=== PATIENT | female | born 1970 | race Asian ===

== ENCOUNTER 2020-03-02 10:13 | Outpatient (REF) | payer BC, SELFPAY ==
--- NOTE | 2020-03-02 | MM_ITS ---
EXAMINATION: MM SCREENING DIGITAL BREAST TOMOSYNTHESIS, BILATERAL CLINICAL INFORMATION: Screening. Asymptomatic. The lifetime risk of breast cancer based on the Tyrer-Cuzick Model is 44%. COMPARISON: Mammography: April 17, 2019 and studies dating back to November 22, 2011 TECHNIQUE: Digital breast tomosynthesis is performed in both the craniocaudal and mediolateral oblique views along with computer-aided detection (CAD). Synthesized 2D images are generated from the tomosynthesis. Left breast exaggerated craniocaudal view also performed. FINDINGS: The breasts are extremely dense, which lowers the sensitivity of mammography (ACR BI-RADS breast composition Category d). There are no significant masses, abnormal calcifications, or other abnormalities. Stable calcifications are seen about the medial aspect of the left breast. MM/MM tomosynthesis screening BI IMPRESSION: There are no significant changes from prior study. ASSESSMENT: BI-RADS 2: Benign RECOMMENDATION: Routine annual mammography screening. This patient's information was entered into a reminder system with a target due date for their next mammogram.
== END 2020-03-02 10:14 | disposition home or self-care (01) ==
LOC: HO.MAMMO 10:13
PROVIDERS: PCP Internal Medicine; Visit Provider Internal Medicine
DX: Z12.31 Encounter for screening mammogram for malignant neoplasm of breast (principal)
CPT/HCPCS: 77063; 77067

== ENCOUNTER 2020-05-06 10:26 | Outpatient (REF) | payer BC, SELFPAY ==
[2020-05-06 11:08] LABS: MANUAL DIFF FLAG NO
[2020-05-06 11:18] LABS: Basophils Absolute Auto 0.1 X10*3/uL (0.0-0.2); Basophils Percent Auto 0.8 % (0-2); Eosinophils Absolute Auto 0.3 X10*3/uL (0.0-0.4); Eosinophils Percent Auto 3.3 % (0-4); Hematocrit 43.9 % (37-47); Hemoglobin 14.4 g/dl (12.0-16.0); Imm Gran Abs Auto 0.02 X10*3/uL (0.00-0.03); Imm Gran Pct Auto 0.2 % (0.0-0.4); Lymphocytes Absolute Auto 2.2 X10*3/uL (1.2-4.9); Lymphocytes Percent Auto 22.7 % (20-40); Mean Corpuscular HGB Conc 32.8 g/dl (31.0-35.0); Mean Corpuscular Volume 91.5 fL (80-98); Mean Platelet Volume 9.7 fL (9.4-12.3); Monocytes Absolute Auto 0.7 X10*3/uL (0.1-1.2); Monocytes Percent Auto 7.6 % (2-11); Neutrophils Absolute Auto 6.3 X10*3/uL (2.0-8.3); Neutrophils Percent Auto 65.4 % (45-73); Platelet Count 246 X10*3/uL (160-400); White Blood Count 9.6 X10*3/uL (4.8-10.8)
[2020-05-06 11:42] LABS: Glucose Urine UA NEG (NEG); Leukocyte Esterase Urine NEG (NEG); Nitrite Urine NEG (NEG); PH 5.5 (5.0-8.0); Specific Gravity - Urine 1.025 (1.005-1.025); Urine Blood TRACE (NEG); Urine Ketones NEG (NEG); Urine Protein NEG (NEG-TRACE)
[2020-05-06 11:44] LABS: Appearance Urine HAZY; Color Urine YELLOW
[2020-05-06 11:47] LABS: Alanine Aminotransferase 13 U/L (0-31); Albumin Level 4.2 g/dL (3.5-5.0); Alkaline Phosphatase 42 U/L (39-117); Anion Gap 14 (12-20); Aspartate Amino Transferase 17 U/L (5-31); Bilirubin Total 0.3 mg/dL (0.0-1.0); Blood Urea Nitrogen 15 mg/dL (9-16); Calcium 8.9 mg/dL (8.4-10.2); Carbon Dioxide 22 mmol/L (22-29); Chloride 107 mmol/L (96-108); Cholesterol 241 mg/dL; Estimated Glomerular Filt Rate > 60; Glucose Random 94 mg/dL (60-115); HDL Cholesterol 91 mg/dL; LDL Cholesterol Calculated 112 mg/dl; Potassium 4.5 mmol/l (3.3-5.1); Sodium 138 mmol/L (135-145); Total Protein 7.7 g/dL (6.5-8.0); Triglycerides 193 mg/dL
[2020-05-06 11:54] LABS: Free T4 (Free Thyroxine) 1.01 ng/dL (0.71-1.85); Thyroid Stimulating Hormone 0.94 uIU/mL (0.32-4.0); Vitamin D 25-OH Total 44.4 ng/mL (>30)
[2020-05-06 11:55] LABS: Mucus Urine TRACE /LPF; Squamous Epithelial Cell Urine 2+ /LPF; WBC Urine 0-2 /HPF (0-4)
[2020-05-06 12:44] LABS: Folate > 20.0 ng/mL (> or = 4.0); Vitamin B12 421 pg/mL (200-900)
== END 2020-05-06 10:27 | disposition home or self-care (01) ==
LOC: HO.LAB 10:26
PROVIDERS: PCP Internal Medicine; Visit Provider Internal Medicine
DX: R51.9 Headache, unspecified (principal); E78.00 Pure hypercholesterolemia, unspecified
CPT/HCPCS: 36415; 80053; 80061; 81001; 82306; 82607; 82746; 84439; 84443; 85025

== ENCOUNTER 2021-03-20 10:14 | Outpatient (REF) | payer BC, SELFPAY ==
--- NOTE | ~2021-03-20 | MM_ITS ---
EXAMINATION: MM SCREENING DIGITAL BREAST TOMOSYNTHESIS, BILATERAL CLINICAL INFORMATION: Screening. Asymptomatic. Family history premenopausal breast cancer, sister age 34; breast cancer aunt, age 50. The lifetime risk of breast cancer based on the Tyrer-Cuzick Model is 23%. COMPARISON: Mammography: 03/02/2020, 04/17/2019, 02/26/2019, 02/24/2018; MRI breasts 06/09/2017 TECHNIQUE: Digital breast tomosynthesis is performed in both the craniocaudal and mediolateral oblique views along with computer-aided detection (CAD). Synthesized 2D images are generated from the tomosynthesis. FINDINGS: The breasts are heterogeneously dense, which may obscure small masses (ACR BI-RADS breast composition Category c). Parenchymal pattern is similar to prior studies with stable scattered bilateral asymmetries. There is no developing density. No architectural abnormality or significant mass or abnormal calcifications. The axilla and skin contours are unremarkable. MM/MM tomosynthesis screening BI IMPRESSION: No mammographic evidence of malignancy. ASSESSMENT: BI-RADS 2: Benign RECOMMENDATION: 1. Routine annual mammography screening. 2. The lifetime risk of breast cancer based on the Tyrer-Cuzick Model is 23%. Additional annual adjunct screening with breast MRI may be of benefit in women with a risk score of 20% or greater. This patient's information was entered into a reminder system with a target due date for their next mammogram.
== END 2021-03-20 10:15 | disposition home or self-care (01) ==
LOC: HO.MAMMO 10:14
PROVIDERS: PCP Internal Medicine; Visit Provider Internal Medicine
DX: Z12.31 Encounter for screening mammogram for malignant neoplasm of breast (principal)
CPT/HCPCS: 77063; 77067

== ENCOUNTER 2022-03-26 10:06 | Outpatient (REF) | payer BC, SELFPAY ==
--- NOTE | ~2022-03-26 | MM_ITS ---
EXAMINATION: MM SCREENING DIGITAL BREAST TOMOSYNTHESIS, BILATERAL CLINICAL INFORMATION: Screening. Asymptomatic. Family history breast cancer, sister, aunt. The lifetime risk of breast cancer based on the Tyrer-Cuzick Model is 22%. COMPARISON: Mammography: 03/20/2021, 03/02/2020, 04/17/2019, 02/24/2018 TECHNIQUE: Digital breast tomosynthesis is performed in both the craniocaudal and mediolateral oblique views along with computer-aided detection (CAD). Synthesized 2D images are generated from the tomosynthesis. Technologist notes technically challenging exam due to recent right shoulder injury. Exam optimized to patient capabilities. FINDINGS: The breasts are heterogeneously dense, which may obscure small masses (ACR BI-RADS breast composition Category c). There are scattered shifting fibroglandular parenchymal densities related to variation in positioning. No developing density or significant changes. No abnormal calcifications. The axilla and skin contours are unremarkable. No significant changes. MM/MM tomosynthesis screening BI IMPRESSION: No significant changes from prior studies. ASSESSMENT: BI-RADS 2: Benign RECOMMENDATION: Routine annual mammography screening. This patient's information was entered into a reminder system with a target due date for their next mammogram.
== END 2022-03-26 10:07 | disposition home or self-care (01) ==
LOC: HO.MAMMO 10:06
PROVIDERS: Visit Provider Internal Medicine
DX: Z12.31 Encounter for screening mammogram for malignant neoplasm of breast (principal)
CPT/HCPCS: 77063; 77067

== ENCOUNTER 2022-09-30 06:20 | Day surgery (SDC) | payer BC, SELFPAY ==
[2022-09-30 06:32] VITALS: BMI 19.6
[2022-09-30 06:43] VITALS: BP 114/56; PULSE 78; RESP 16; TEMP 36.4; O2SAT 99
[2022-09-30] MEDS: Lactated Ringers 1,000 ML 50 ML IVCONT (06:53)
--- NOTE | 2022-09-30 07:25 | HO.ANESPROP2 ---
[facility] Active Problems Active Problems: All Active Problems (Updated 09/28/22 @ 13:19 by Candi Ward NP) Hypertriglyceridemia (Acute) Shoulder pain, right (Acute) Breast calcifications (Acute) Colon cancer screening (Acute) Occipital headache (Acute) Bunion (Acute) Annual physical exam (Acute) Past Medical History Medical History Breast calcifications Seasonal allergic rhinitis Family History Family History Father No problems noted. Mother CVD (cerebrovascular disease) Stroke Sister Breast cancer Paternal Aunt Breast cancer Paternal Grandfather Colon cancer Surgical History Surgical History History of arthroscopy of left shoulder History of Problems with Anesthesia: No Social History Social History Housing: House Alcohol intake: current Patient Tobacco Use Status: Former Tobacco user Years Smoked: college e-Cigarette/Vaping Use: Never Used Second Hand Smoke Exposure: No Use of substances other than those prescribed or required for medical reasons: No Are you DNR?: No Advance Directives: No Advance Directives Information Provided: Yes Recently lost weight without trying: No Nutrition Risks: No Nutritional Risk service: No Current occupational status: employed Cognitive needs: No Hearing needs: No Vision needs: No Meds Allergies Allergy/AdvReac Type Severity Reaction Status Date / Time Seasonal Allergies Allergy headaches Verified 03/24/22 10:32 itchy eyes, sneezing,rash Home Medications Medication Instructions Recorded Confirmed Last Taken Type fexofenadine 180 mg tablet 180 mg PO DAILY 05/05/20 03/24/22 Unknown History (Marilynn Allergy) multivitamin 1 tab PO DAILY 05/05/20 03/24/22 Unknown History drospirenone 3 mg-ethinyl 1 tab PO DAILY 10/26/20 03/24/22 Unknown History estradiol 0.03 mg tablet drospirenone 3 mg-ethinyl tab PO 09/28/22 09/28/22 Unknown History estradiol 0.03 mg tablet (Fariba) fexofenadine 60 mg capsule mg PO 09/28/22 Unknown History Exam Exam Date and Time: September 30, 2022724 Height,Weight and Vital Signs: Height 5 ft 1 in Weight 47.174 kg Last Vital Signs Temp 97.5 F 09/30/22 06:43 Pulse 78 09/30/22 06:43 Resp 16 09/30/22 06:43 BP 114/56 L 09/30/22 06:43 Pulse Ox 99 09/30/22 06:43 O2 Del Method Room Air 09/30/22 06:43 Airway Mallampati Class: I TM Dist: >3cm Neck ROM: Full Loose/Missing/Broken Teeth: No Heart: RRR Lungs: CYA Assessment and Plan Assessment Anesthesia Assessment: Anesthesia Plan Discussed and Chart Reviewed Final Anesthetic Review History of Problems with Anesthesia: No NPO: Yes ASA Class: II Final Preanesthetic Review: Meds/Allgs Chart Reviewed, Consent Obtained/Reviewed and Anes Risks/Benef Reviewed Patient Risk: Low Procedure Risk: Low Anesthetic Plan Anesthetic Plan: MAC: Disposition: Standard PACU
--- NOTE | 2022-09-30 07:26 | MHC.SHP ---
Pre-Procedural Eval Section A Date of Service: 09/30/22 Section B Chief Complaint: screening Details of Present Illness: see H&P no changes Relevant Family History (Specify if Yes): No Present Medications: None Medical History: No relevant PMH History of Previous Operations: No relevant previous surgery Allergies: Allergies Allergy/AdvReac Type Severity Reaction Status Date / Time Seasonal Allergies Allergy headaches Verified 03/24/22 10:32 itchy eyes, sneezing,rash Review of Systems Sugical H&P ROS: Negative: Constitution, Cardiovascular, Respiratory, Neurological, Psychiatric, Hem-Onc, Allergic/Immunologic, Gastrointestinal, Genitourinary, Musculoskeletal, Integumentary, Endocrine and Eyes/Ears/Nose/Throat Exam Surgical H&P Exam: Normal: HEENT, Normal: Heart, Normal: Lungs, Normal: Extremities, Normal: Abdomen, Normal: Skin and Normal: Neurological Plan Diagnosis/Plan: Unchanged I have reviewed the history and physical and performed a pertinent physical examination on my patient. No changes have occurred unless specified. Time Spent With Patient Time: Total time managing care of this patient today ____ minutes.
[2022-09-30 08:00] VITALS: BP 101/55; PULSE 75; RESP 18; TEMP 36.3; O2SAT 100
--- NOTE | 2022-09-30 08:09 | P.BOP_ITS ---
Brief Operative Note Date of Service: 09/30/22 Pre-op diagnosis: screening Post-op diagnosis: same Procedure: colonoscopy Surgeon: Bobby Schwartz Anesthesia: MAC Was an Moisture Meter Reader used for this Procedure?: No Estimated blood loss (mL): 0 Pathology: none sent Condition: stable Disposition: PACU
[2022-09-30 08:13] VITALS: BP 101/55; PULSE 69; RESP 18; O2SAT 100
[2022-09-30 08:25] VITALS: BP 105/53; PULSE 68; RESP 18; TEMP 36.4; O2SAT 100
--- NOTE | 2022-09-30 08:39 | OP_ITS ---
DATE OF SERVICE: 09/30/2022 SURGEON: Bobby Scwhartz MD INDICATIONS: Colorectal cancer screening. PREOPERATIVE DIAGNOSIS: POSTOPERATIVE DIAGNOSIS: PROCEDURE PERFORMED: Colonoscopy to the terminal ileum. ESTIMATED BLOOD LOSS: COMPLICATIONS: ANESTHESIA: Monitored anesthesia care. ASSISTANTS: SPECIMENS: DESCRIPTION OF PROCEDURE: A history and physical was performed. The risks and benefits of the procedure were explained to the patient. Informed consent was obtained. The patient was placed in the left lateral decubitus position. A digital rectal exam was performed and was found to be normal. The Olympus pediatric video colonoscope was introduced into the rectum and advanced to the cecum without difficulty. The cecum was identified by transillumination, palpation, and identification of the ileocecal valve. Examination was performed. The scope was removed. She tolerated the procedure well and was taken to recovery in stable condition. FINDINGS: The terminal ileum was normal. Visualized colonic mucosa was normal. The quality of prep was excellent. No polyps were identified. Retroflexed examination showed some small internal hemorrhoids. IMPRESSION: Normal colonoscopy. RECOMMENDATIONS: 1. Follow up as needed. 2. Repeat colonoscopy could be considered in 10 years as she is at average risk. MD GEOVANNY Perez/JEOVANYL / [id number]
== END 2022-09-30 09:18 | disposition home or self-care (01) ==
PROVIDERS: PCP Internal Medicine; Visit Provider Internal Medicine Gastroenterology
PROC: 0DJD8ZZ Inspection of Lower Intestinal Tract, Via Natural or Artificial Opening Endoscopic (ICD-10-PCS; CPT 45378; principal; 2022-09-30 07:30)
DX: Z12.11 Encounter for screening for malignant neoplasm of colon (principal); K64.8 Other hemorrhoids; J30.2 Other seasonal allergic rhinitis; Z79.899 Other long term (current) drug therapy
CPT/HCPCS: 45378

== ENCOUNTER 2023-04-08 09:52 | Outpatient (REF) | payer BC, SELFPAY ==
--- NOTE | ~2023-04-08 | MM_ITS ---
EXAMINATION: MM SCREENING DIGITAL BREAST TOMOSYNTHESIS, BILATERAL CLINICAL INFORMATION: Screening. Asymptomatic. The patient has a history of prior benign excisional right breast biopsy. Patient has a significant family history for sister having had breast cancer at age 34 and an aunt diagnosed at age 50. Prior Tyrer-Absaraka risk assessment has placed the patient's lifetime risk of breast cancer above 20%. The patient's last breast MRI at this institution was in 2018. Please note that a patient of this level of risk should have annual screening breast MRI as an adjunct to annual mammography. The genetic mutation status of this patient as it relates to risk of breast cancer is not known at the time of this mammogram. If the patient has not had a formal genetic risk assessment evaluation in the last 5 years, this is recommended. The 5 year bethel is given since there have been significant improvements in the quality and extent of genetic testing as it relates to the risk of breast cancer. COMPARISON: Mammography: This study is compared with prior exams dating back to 2017. TECHNIQUE: Digital breast tomosynthesis is performed in both the craniocaudal and mediolateral oblique views along with computer-aided detection (CAD). Synthesized 2D images are generated from the tomosynthesis. FINDINGS: There are scattered areas of fibroglandular density (ACR BI-RADS breast composition Category b). RIGHT BREAST: A scar marker was placed in the superior aspect of the right breast indicating in the area of prior benign excision. In the 6:00 region of the right breast, there is a focal asymmetry which warrants additional mammographic and targeted sonographic imaging. There are faint calcifications in the central portion of the right breast which warrant additional imaging with magnification mammography. This should involve whole breast magnification. LEFT BREAST: There is an asymmetry of the anterior fat glandular interface of the left breast, just below the posterior nipple line in the MLO projection. Additional mammographic and targeted sonographic evaluation of this region is advised. There are faint calcifications in the upper inner quadrant of the left breast for which additional mammographic imaging with magnification is advised. MM/MM tomosynthesis screening BI IMPRESSION: Bilateral additional breast imaging is indicated: Additional mammographic and targeted sonographic imaging of a right breast focal asymmetry and a left breast asymmetry are advised. Additional mammographic imaging with magnification is advised for bilateral breast calcifications as described above. Please refer to the clinical information section above regarding additional clinical and MRI imaging evaluation given the patient's risk of breast cancer. ASSESSMENT: BI-RADS BI-RADS 0 - Incomplete: Needs additional Imaging. RECOMMENDATION: Additional views of both breasts recommended. Radiology department staff will contact the patient for additional imaging. Additional Imaging required This examination should not preclude the clinical evaluation of a suspicious palpable abnormality. This patient's information was entered into a reminder system with a target due date for their next mammogram.
== END 2023-04-08 09:53 | disposition home or self-care (01) ==
LOC: HO.MAMMO 09:52
PROVIDERS: Visit Provider Internal Medicine
DX: Z12.31 Encounter for screening mammogram for malignant neoplasm of breast (principal)
CPT/HCPCS: 77063; 77067

== ENCOUNTER → 2023-04-08 10:00 | Outpatient (BNV) | payer BC, SELFPAY | PROVIDERS: Visit Provider Radiology Diagnostic Radiology | DX: Z12.31 Encounter for screening mammogram for malignant neoplasm of breast (principal) | CPT/HCPCS: 77063; 77067 ==

== ENCOUNTER → 2023-04-18 08:00 | Outpatient (BNV) | payer BC, SELFPAY | PROVIDERS: PCP Internal Medicine; Visit Provider Radiology Diagnostic Radiology | DX: R92.1 Mammographic calcification found on diagnostic imaging of breast (principal) | CPT/HCPCS: 76641; 77062; 77066 ==

== ENCOUNTER 2023-04-18 08:03 | Outpatient (REF) | payer BC, SELFPAY ==
--- NOTE | ~2023-04-18 | US_ITS ---
EXAMINATION: MM DIAGNOSTIC DIGITAL BREAST TOMOSYNTHESIS, BILATERAL AND BILATERAL WHOLE BREAST ULTRASOUND CLINICAL INFORMATION: The patient presents for bilateral additional mammographic and sonographic imaging for right breast inferiorly located focal asymmetry, centrally located right breast calcifications, left breast asymmetry and left breast upper inner quadrant calcifications. All these findings were noted on recent screening mammography dated 04/08/2023. Please note that the patient is high risk for the development of breast cancer over her lifetime given her family history. COMPARISON: Mammography: This study is compared with prior mammograms dating back to 2017. MAMMOGRAPHIC AND SONOGRAPHIC TECHNIQUE: Digital breast tomosynthesis is performed in both the craniocaudal and mediolateral oblique views along with computer-aided detection (CAD). Synthesized 2D images are generated from the tomosynthesis. Bilateral CC and lateral magnification imaging of each breast and spot compression of the left breast in the MLO projection and spot compression of the right breast in the CC and MLO projections was performed. Bilateral 90 degree views of each breast were also performed. Bilateral whole breast ultrasound was performed. FINDINGS: There are scattered areas of fibroglandular density (ACR BI-RADS breast composition Category b). RIGHT BREAST: -Additional mammographic imaging of the inferiorly located right breast focal asymmetry reveals an area of irregular mass formation with architectural distortion which is mammographically suspicious and has a sonographic correlate. Please note that the patient's surgical scar is located in the superior aspect of the breast, remote from this suspicious finding. Sonography of the right breast in the 6:00 position, 1 cm from the nipple shows a 7 mm x 6 mm x 4 mm irregularly marginated hypoechoic mass with an echogenic halo. There is no internal vascularity of the mass however there is a prominent artery which lies adjacent to the mass. The deep portion of the mass approaches the chest wall muscle. This may be artifactual due to the supine position of the patient while being scanned. Nonetheless, the finding does come close to the chest wall on sonography. Invasion or extension to the level of the chest wall muscle cannot be ruled out from sonography. This would require breast MRI. There is no right axillary adenopathy. -Additional mammographic imaging of the calcifications in the superior aspect of the right breast, just lateral to the posterior nipple line revealed them to be grouped and indeterminate. Stereotactic biopsy of these calcifications is advised if it will change the patient preferences and surgical recommendations for definitive surgical, pending the results of the biopsy of the sonographic mass at 6:00 which is referenced in the paragraph directly above. LEFT BREAST: -Additional mammographic imaging of the left breast shows no persistent underlying abnormality. Sonography of the entire left breast shows no focal abnormality. There is no left axillary adenopathy. -Additional mammographic imaging of calcifications in the upper inner quadrant of the left breast was performed. In this location, there are grouped, indeterminate calcifications which warrant stereotactic biopsy. Stereotactic biopsy of these calcifications is advised if it will change the patient's preferences for definitive surgical management given her family history and right breast findings on today's study. US/US breast BI limited mamm only IMPRESSION: 7 mm mammographically and sonographically suspicious mass of the 6:00 region of the right breast for which ultrasound-guided biopsy is advised. Please note that extension of this abnormality to the chest wall should be determined with breast MRI. No adenopathy in either axilla. Bilateral indeterminate calcifications involving the upper outer quadrant of the right breast and upper inner quadrant of the left breast. Stereotactic biopsy of these calcifications is advised. Surgical consultation is recommended. Please note that taking into consideration the patient's prior family history and current suspicious right breast sonographic mass, stereotactic biopsy of these calcifications may be deferred in the short-term until the pathology results from the right breast mass are known. At that point, bilateral breast MRI is recommended. Pending the right breast biopsy and breast MRI results, the stereotactic biopsies may be performed at the discretion of the consulting surgeon and with consideration to the patient's preferences for definitive surgical treatment. If the patient and /or breast surgeon wishes to the stereotactic biopsies performed prior to breast MRI, we would be happy to accommodate the patient. ASSESSMENT: BI-RADS BI-RADS 5 - Highly suggestive of malignancy RECOMMENDATION: Biopsy recommended Surgical consultation is also recommended. Results were provided to the patient at time of visit by the technologist. This patient's information was entered into a reminder system with a target due date for their next mammogram.
== END 2023-04-18 08:04 | disposition home or self-care (01) ==
LOC: HO.MAMMO 08:03
PROVIDERS: PCP Internal Medicine; Visit Provider Internal Medicine
DX: R92.1 Mammographic calcification found on diagnostic imaging of breast (principal)
CPT/HCPCS: 76642; 77062; 77066

== ENCOUNTER 2023-04-21 10:52 | Outpatient (AMB) | payer BC, SELFPAY ==
--- NOTE | 2023-04-21 11:00 | MHC.PC.OV ---
Vital Signs 04/21/23 11:03 Height 5 ft 1 in Weight 102 lb BMI 19.3 BP 124/86 Blood Pressure Location Lt brachial Position Sitting Respiration 17 Pulse 70 Pulse Source Palpation Intake Visit Reasons: Annual Exam Intake Note: Patient is here today for a physical. Group Practice Pediatrician Required: No Accompanied by: Self / Same As Patient Allergies Seasonal Allergies Allergy (Verified 04/21/23 11:04) headaches itchy eyes, sneezing,rash Medication List - Last Reconciled 04/21/23 by Tammy Walton MD drospirenone-ethinyl estradiol 3-0.03 mg (Fariba) tabs PO fexofenadine (Marilynn Allergy) 180 mg PO DAILY multivitamin 1 tab PO DAILY Tobacco use date assessed: 04/21/23 Dental Screening Dental Screen Date: 04/21/23 Did you have a dental visit in the last 12 months?: Yes Did you have a dental problem in the last 6 months where you did not have access to dental care?: No Was dental information given to patient?: Patient has dentist HPI Annual Exam HPI Details 52-year-old female with a history of hypertriglyceridemia coming in for physical exam. Patient had colonoscopy April 2023 10 years Concerns about breast calcifications also. Patient was last seen in 2021.. Biopsy Dr. Bourne scheduled 05/17/2023. hoarse since 3 days , no fevers, cough, , sob, post nasal drip. [facility] Medical History (Updated 04/21/23 @ 11:55 by Tammy Walton MD) Colon cancer screening Seasonal allergic rhinitis Breast calcifications Surgical History History of arthroscopy of left shoulder Family History Father No problems noted. Mother CVD (cerebrovascular disease) Stroke Sister Breast cancer Paternal Aunt Breast cancer Paternal Grandfather Colon cancer Social History (Updated 04/21/23 @ 11:45 by Tammy Walton MD) Housing: House Alcohol intake: current Comment: once q 3 month 1-2 glasses Patient Tobacco Use Status: Former Tobacco user Tobacco use type: Cigarette Years Smoked: college e-Cigarette/Vaping Use: Never Used Second Hand Smoke Exposure: No service: No Current occupational status: employed Cognitive needs: No Hearing needs: No Vision needs: No Questionnaire PHQ-9 Over the last 2 weeks, how often have you been bothered by any of the following problems? 1. Little interest or pleasure in doing things: not at all 2. Feeling down, depressed, or hopeless: not at all 3. Trouble falling or staying asleep, or sleeping too much: not at all 4. Feeling tired or having little energy: not at all 5. Poor appetite or overeating: not at all 6. Feeling bad about yourself - or that you are a failure or have let yourself or your family down: not at all 7. Trouble concentrating on things, such as reading the newspaper or watching television: not at all 8. Moving or speaking so slowly that other people could have noticed. Or the opposite - being so fidgety or restless that you have been moving around a lot more than usual: not at all 9. Thoughts that you would be better off or of hurting yourself in some way: not at all Total score: 0 Depression Screening Interpretation: Negative Depression Screening Done: Yes Source: Developed by Drs. Ross Gilliam, Kaitlynn Thompson, Rey Finley and colleagues, with an educational jazz from [employer]. Thrive Questionnaire Date Thrive assessed: 04/21/23 I am a: Patient What is your living situation today?: I have a steady place to live Within the past 12 months, did the food you bought not last and you didn't have the money to get more?: Never true Within the past 12 months, did you worry whether your food would run out before you got money to buy more?: Never true Do you have trouble paying for medicines?: No Do you have trouble getting transportation to medical appointments?: No Do you have trouble paying your heating and electricity bill?: No Do you have trouble taking care of your child, family member or friend?: No Do you have trouble with day-to-day activities such as bathing, preparing meals, shopping, managing finances, etc.?: No Are you currently unemployed and looking for a job?: No Are you interested in more education?: No Please select the resources that you would like help with: None Currently or been in a relationship where the following occur: no concerns reported AUDIT C Alcohol Use Questionnaire (AUDIT-C) 1. How often do you have a drink containing alcohol?: Monthly or less 2. How many drinks containing alcohol do you have on a typical day when you are drinking?: 1 or 2 3. How often do you have six or more drinks on one occasion?: Never Total Score: 1 CARYN-7 AMB Questionnaire CARYN-7 Date CARYN - 7 assessed: 04/21/23 Feeling nervous, anxious, or on edge: 0 = Not at all Not being able to stop or control worryin = Not at all Worrying too much about different things: 0 = Not at all Trouble relaxin = Not at all Being so restless that it is hard to sit still: 0 = Not at all Becoming easily annoyed or irritable: 0 = Not at all Feeling afraid as if something awful might happen: 0 = Not at all Total CARYN-7 score (0-4 normal; 5-9 mild; 10-14 moderate; 15-21 severe): 0 Source: Developed by Drs. Ross Gilliam, Kaitlynn Thompson, Rey Finley and colleagues, with an educational jazz from [employer]. CARYN-7 Assessment Billing CARYN-7 Assessment Tool: CARYN-7 Assessment 80493 Review of Systems Const Denies poor appetite and Denies weakness Eyes Denies no additional complaints ENT Reports Normal hearing present, Denies dizziness, Denies nasal congestion, Denies tinnitus and Denies sore throat Card Denies chest pain, Denies syncope, Denies rapid heart rate and Denies dyspnea Resp Denies cough and Denies dyspnea GI Denies change in stool character, Reports constipation, Denies diarrhea, Denies nausea and Denies vomiting Denies urinary frequency, Denies difficulty voiding and Denies dysuria Neuro Reports Normal hearing present, Denies confusion, Denies dizziness, Denies syncope and Denies weakness Psych Denies confusion Physical exam (Primary Care) Vital Signs: Last Vital Signs Pulse 70 04/21/23 11:03 Resp 17 04/21/23 11:03 BP 124/86 04/21/23 11:03 BMI result Body Mass Index 19.3 Tobacco/Smoking Status: Tobacco use Status Tobacco use date assessed 04/21/23 04/21/23 11:08 Patient Tobacco Use Status Former Tobacco user 04/21/23 11:00 Tobacco use type Cigarette 04/21/23 11:08 e-Cigarette/Vaping Use Never Used 12/15/23 11:00 PHQ-9: PHQ-9 Score PHQ-9: Total score 0 04/21/23 11:08 Depression Screening Interpretation: Negative Thrive Assessment: Date of Thrive Assessment Date Thrive assessed 04/21/23 04/21/23 11:08 Currently or been in a relationship where the following occur: no concerns reported Const General: No confusion Orientation/consciousness: No confusion HENMT Head: Yes normocephalic Ears: external ears normal and TM's normal bilaterally Face and sinus: Yes normal facial exam Mouth: moist mucous membranes Throat: Yes tonsils normal Eyes Conjunctivae: conjunctivae normal Pupils: Equal, round and reactive pupils present and Pupil accommodation reflex normal Direct Ophthalmoscopy: normal light reflex Neck Neck: No lymphadenopathy Thyroid: Thyroid normal Chest Chest palpation & inspection: normal inspection of the chest Resp Effort & Inspection: normal respiratory effort and no audible wheezes Auscultation: clear to auscultation bilaterally, no crackles, no wheezes and lung sounds not diminished Cardio Rate: regular rate Rhythm: regular rhythm Peripheral pulses: radial pulses present and dorsalis pedis present GI Palpation (GI): no masses Auscultation: normal bowel sounds and normoactive bowel sounds Rectal Exam - Female: deferred Skin General skin exam: no rashes or lesions noted Rashes: no rashes Neuro General: No confusion Cranial nerves: Yes Equal, round and reactive pupils present and Yes Normal hearing present Cognition (Neuro): normal cognition Gait exam (Neuro): Normal gait present Motor exam (neuro): 5/5 motor strength present throughout Deep tendon reflexes (DTR's): Right brachioradialis reflex intensity grade: 2+, Left brachioradialis reflex intensity grade: 2+, Right patellar reflex intensity grade: 2+ and Left patellar reflex intensity grade: 2+ Extrem General: No edema Assessment and Plan Assessment & Plan (1) Annual physical exam: Code(s): Z00.00 - Encounter for general adult medical examination without abnormal findings (2) Occipital headache: Code(s): R51.9 - Headache, unspecified (3) Breast calcifications: Comment: 2008 right breast calcification atypical duct hyperplasia, left breast calcifications February 2016 MRI May 2016. 2019= mammogram only. for 2020 mammo and MRI with contrast Code(s): R92.1 - Mammographic calcification found on diagnostic imaging of breast Plan: Recent ultrasound recommending biopsy scheduled for May 2023 (4) Hypertriglyceridemia: Code(s): E78.1 - Pure hyperglyceridemia Plan: Avoid fried foods, chicken skin, eggs, butter margarine, pastries and meat. Be it pork or beef they have a lot of cholesterol (5) Neck mass: Comment: posterior 12/2011 Dr. Ham 2011 Code(s): R22.1 - Localized swelling, mass and lump, neck Plan: will be seeing the surgeon advised to ask about this (6) Keratosis: Comment: R lind area (04/2023) Code(s): L57.0 - Actinic keratosis Plan: will call if change Orders: Orders Complete Blood Count Auto Diff Today E78.1 - Pure hyperglyceridemia Comprehensive Met. Panel Today E78.1 - Pure hyperglyceridemia Free T4 (Free Thyroxine) Today E78.1 - Pure hyperglyceridemia Vitamin B12 and Folate Today E78.1 - Pure hyperglyceridemia Lipid Panel Today E78.00 - Pure hypercholesterolemia, unspecified, E78.1 - Pure hyperglyceridemia Thyroid Stimulating Hormone Today E78.1 - Pure hyperglyceridemia Coding Level of Care Code Est Pt Prev Care 40-64y(47160) Diagnoses Annual physical exam Z00.00 Occipital headache R51.9 Breast calcifications R92.1 Hypertriglyceridemia E78.1 Neck mass R22.1 Keratosis L57.0 Additional Codes CARYN-7 Assessment Billing - CARYN-7 Assessment Tool: CARYN-7 Assessment 43328 ([id number])
[2023-04-21 11:03] VITALS: BP 124/86; PULSE 70; RESP 17; BMI 19.3
== END 2023-04-21 12:00 | disposition home or self-care (01) ==
PROVIDERS: Visit Provider Internal Medicine
DX: Z00.00 Encounter for general adult medical examination without abnormal findings (principal); R51.9 Headache, unspecified; E78.1 Pure hyperglyceridemia; R22.1 Localized swelling, mass and lump, neck; L57.0 Actinic keratosis
CPT/HCPCS: 99396

== ENCOUNTER 2023-05-17 08:22 | Outpatient (AMB) | payer BC, SELFPAY ==
--- NOTE | 2023-05-17 08:25 | A.OFFVIS_ITS ---
Intake Vital Signs 05/17/23 08:32 Height 5 ft 1 in Weight 105 lb BMI 19.8 BP 118/65 Blood Pressure Location Rt brachial Position Sitting Pulse 92 Intake Visit Reasons: U/S bx of Rt breast 6 o'clock density Intake Note: This patient presents for Ultrasound guided biopsy for right breast 6 o'clock density assessment. Patient c/o; reports no breast complaints at this time. Paster Supervisor Required: No Equipment Superintendent: Equipment Superintendent Present (Gen) Accompanied by: Self / Same As Patient Allergies Seasonal Allergies Allergy (Verified 05/17/23 08:29) headaches itchy eyes, sneezing,rash HPI U/S bx of Rt breast 6 o'clock density HPI Details 52-year-old female here because of mammo gram findings. She had undergone screening mammography showing calcifications on both breasts. She had been brought back in for diagnostic mammogram and ultrasound. There was note of irregularly marginated hypoechoic mass in the right breast at the 6 o'clock position. This also appears to be close to the chest wall. On the upper inner quadrant of the left breast was note of indeterminate calcifications as well. Stereotactic biopsy of these 2 areas were recommended by the radiologist She had previous mammogram studies showing fibroglandular densities on her breasts. She denies any palpable breast masses or nipple or skin changes. Her menarche was at age of 15. She was never . She still has her periods. Her sister was diagnosed to have breast cancer at age of 35. The patient herself had BRCA testing which was negative. She did have an open biopsy for calcifications on the right breast with Dr. Amador in 2008 in this showed sclerosing adenosis and ductal hyperplasia. She has had multiple and regular g along with MRI since then. The patient also points to a mass on the posterior neck. She had excision done before by Dr. 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 However, she says that this has recurred. [facility] Medical History Calcification of both breasts on mammography Colon cancer screening Seasonal allergic rhinitis Breast calcifications Surgical History History of arthroscopy of left shoulder Family History Father No problems noted. Mother CVD (cerebrovascular disease) Stroke Sister Breast cancer Paternal Aunt Breast cancer Paternal Grandfather Colon cancer Social History Housing: House Alcohol intake: current Comment: once q 3 month 1-2 glasses Patient Tobacco Use Status: Former Tobacco user Tobacco use type: Cigarette Years Smoked: college e-Cigarette/Vaping Use: Never Used Second Hand Smoke Exposure: No service: No Current occupational status: employed Cognitive needs: No Hearing needs: No Vision needs: No Female Reproductive History Menstrual Age of Menarche: 15 Total pregnancies: 0 Review of Systems Const Denies chills and Denies fever(s) Card Denies chest pain, Denies dyspnea and Denies dyspnea on exertion Resp Denies cough, Denies dyspnea and Denies dyspnea on exertion GI Denies hematochezia and Denies change in bowel habits Denies hematuria Musc Denies back pain and Denies limited range of motion Neuro Denies focal weakness and Denies convulsions Psych Denies depression and Denies mood swings Physical Exam Vital Signs: Last Vital Signs Pulse 92 05/17/23 08:32 BP 118/65 05/17/23 08:32 BMI result Body Mass Index 19.8 Const General: comfortable and no acute distress Orientation/consciousness: patient oriented x3 Neck Other: Mass, well-defined on the posterior neck, about 3 cm in size, firm, mobile and appears subcutaneous Neck: Yes no lymphadenopathy Chest Other: No palpable breast masses, no nipple or skin changes, surgical scar on the upper aspect of the right breast seen Resp Auscultation: clear to auscultation bilaterally Cardio Rhythm: regular rhythm GI Palpation (GI): Soft to palpation, nontender and no guarding Neuro General: patient oriented x3 Assessment & Plan Assessment & Plan (1) Calcification of both breasts on mammography: Code(s): R92.1 - Mammographic calcification found on diagnostic imaging of breast Plan: She has mammographic abnormalities seen as described above on both breasts. A stereotactic biopsy had been recommended by the radiologist for both the right breast in the left breast. She understands the technique of this procedure. I will see her in the office to discuss the path report next week. We will also discuss plans for her lipoma on the posterior neck. Orders: Orders US breast ndl core biopsy RT 05/16/23 N63.10 - Unspecified lump in the right nichol ast, unspecified quadrant US breast ndl core biopsy LT 05/16/23 R92.1 - Mammographic calcification found on diagnostic imaging of breast Coding Level of Care Code New Pt Level 3 (99119) Diagnoses Calcification of both breasts on mammography R92.1
[2023-05-17 08:32] VITALS: BP 118/65; PULSE 92; BMI 19.8
== END 2023-05-17 08:58 | disposition home or self-care (01) ==
PROVIDERS: PCP Internal Medicine; Visit Provider Surgery
DX: R92.1 Mammographic calcification found on diagnostic imaging of breast (principal)
CPT/HCPCS: 99203

== ENCOUNTER 2023-05-17 09:57 | Outpatient (REF) | payer BC, SELFPAY ==
--- NOTE | ~2023-05-17 | US_ITS ---
PROCEDURE: US GUIDED BREAST BIOPSY, RIGHT CLINICAL INFORMATION: Patient presenting with suspicious right breast mass 6:00 axis, 1 cm from the nipple, measuring 0.7 x 0.6 x 0.3 cm, for which ultrasound-guided biopsy was recommended. COMPARISON: 04/18/2023, and earlier exams. PROCEDURAL DETAILS: The details of the procedure, as well as the risks, benefits, and alternatives to the procedure were explained to the patient in detail and all of her questions were answered, after which written informed consent was obtained. Site and side were confirmed. Prior to the procedure, sonography revealed a hypoechoic irregular right breast mass at the 6:00 axis, 1 cm from the nipple, measuring 0.7 x 0.6 x 0.3 cm. A time-out was performed, the lesion intended for biopsy was targeted, and the skin of the right breast was then marked, prepped and draped in the usual sterile fashion. Using sonographic guidance, sterile technique, and 1% lidocaine without epinephrine for local anesthesia, multiple core biopsies were obtained through the targeted area with a 14G spring loaded [employer] Systemsera core biopsy device. There was real-time confirmation of appropriate needle passage. Sampling was documented. At the completion of tissue sampling, a single open coil-shaped metallic clip was deposited at the biopsy site. There was no evidence of immediate complication. SPECIMEN: 3 well formed fay cores were obtained. DIGITAL POST-PROCEDURE MAMMOGRAPHY: Breast density: The tissue contains scattered areas of fibroglandular density. BI-RADS version 5, category B. There are no new mammographic findings demonstrated. The postprocedure 2-view direct digital mammogram reveals accurate positioning of the biopsy clip. No evidence of hematoma. The patient tolerated the procedure well and, after assuring adequate hemostasis, was discharged in good condition after reviewing postbiopsy breast care instructions. Final pathology results are pending. US/US breast ndl core biopsy RT IMPRESSION: 1. No immediate complication from ultrasound-guided percutaneous biopsy right breast mass. 2. Ultrasound was used to localize and guide marker clip placement. 3. The 2-view direct digital postprocedure mammogram reveals satisfactory and accurate positioning of the biopsy clip. No evidence of hematoma. 4. Final pathology results are pending. A separate report with final recommendations will be issued once these results are made available.
[2023-05-17] MEDS: Lidocaine HCl 1 % 20 ML VIAL 9 ML SUBCUT (11:04)
[2023-05-17] MEDS: Sodium Bicarbonate 8.4% 50 MEQ/50 ML VIAL SUBCUT (11:05)
== END 2023-05-17 09:58 | disposition home or self-care (01) ==
LOC: HO.MAMMO 09:57
PROVIDERS: PCP Internal Medicine; Visit Provider Surgery
DX: N63.15 Unspecified lump in the right breast, overlapping quadrants (principal)
CPT/HCPCS: 19083; 77061; 77065; 88305; 88341; 88342; 88360; A4648; C1894

== ENCOUNTER → 2023-05-17 10:00 | Outpatient (BNV) | payer BC, SELFPAY | PROVIDERS: PCP Internal Medicine; Visit Provider Radiology Diagnostic Radiology | DX: C50.811 Malignant neoplasm of overlapping sites of right female breast (principal) | CPT/HCPCS: 19083; 77061; 77065 ==

== ENCOUNTER 2023-05-24 09:18 | Outpatient (AMB) | payer BC, SELFPAY ==
--- NOTE | 2023-05-24 09:26 | MHC.OFFVIS ---
Intake Intake Visit Reasons: U/S bx Results Rt breast 6 o'clock density Intake Note: This patient presents for breast biopsy results. Patient c/o; reports no changes or complaints at this time. Size Roller Operator Required: No Accompanied by: Family/Other Allergies Seasonal Allergies Allergy (Verified 05/24/23 09:27) headaches itchy eyes, sneezing,rash Medication List - Last Reconciled 05/24/23 by Samir Escobar MD drospirenone-ethinyl estradiol 3-0.03 mg (Fariba) tabs PO fexofenadine (Marilynn Allergy) 180 mg PO DAILY multivitamin 1 tab PO DAILY HPI U/S bx Results Rt breast 6 o'clock density HPI Details She is here for follow-up to discuss ulcer of a right breast biopsy for calcifications. She actually was supposed to have a biopsy of left breast calcifications as well. She denies any problems with the biopsy from last week. She denies any hematoma. [facility] Medical History Calcification of both breasts on mammography Colon cancer screening Seasonal allergic rhinitis Breast calcifications Surgical History History of arthroscopy of left shoulder Family History Father No problems noted. Mother CVD (cerebrovascular disease) Stroke Sister Breast cancer Paternal Aunt Breast cancer Paternal Grandfather Colon cancer Social History Housing: House Alcohol intake: current Comment: once q 3 month 1-2 glasses Patient Tobacco Use Status: Former Tobacco user Tobacco use type: Cigarette Years Smoked: college e-Cigarette/Vaping Use: Never Used Second Hand Smoke Exposure: No service: No Current occupational status: employed Cognitive needs: No Hearing needs: No Vision needs: No Female Reproductive History Menstrual Age of Menarche: 15 Review of Systems Const Denies chills and Denies fever(s) Card Denies chest pain, Denies dyspnea and Denies dyspnea on exertion Resp Denies cough, Denies dyspnea and Denies dyspnea on exertion GI Denies hematochezia and Denies change in bowel habits Denies hematuria Musc Denies back pain and Denies limited range of motion Neuro Denies focal weakness and Denies convulsions Psych Denies depression and Denies mood swings Physical Exam Const General: comfortable and no acute distress Resp Effort & Inspection: normal respiratory effort Cardio Rate: regular rate Assessment & Plan Assessment & Plan (1) Breast cancer, right: Comment: May 2023 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 Code(s): C50.911 - Malignant neoplasm of unspecified site of right female breast Plan: She was supposed to have biopsy of both the left and right breast for calcifications. A biopsy of the right breast had been done last week and unfortunately, this shows an invasive carcinoma with both ductal and lobular features. This is positive for progesterone receptors. I explained to her that management will be surgical excision, with either mastectomy sentinel biopsy or lumpectomy with sentinel biopsy followed by postop radiation . However, before doing that, I would like her to complete workup of the left breast for calcifications as this might affect management I will also schedule her for an MRI down the line prior to any surgical intervention in view of the asymmetry of the lesion to the chest wall on the right side. She is scheduled to meet with Dr. Mullins of Oncology tomorrow She had genetic testing in 2019 because of a strong family history of breast cancer with her sister having breast cancer at age of 35. I would recommended repeating this with an updated panel. She wanted to proceed with genetic testing again the updated panel. Coding Level of Care Code Est Pt Level 4 (27715) Diagnoses Breast cancer, right C50.911
== END 2023-05-24 10:15 | disposition home or self-care (01) ==
PROVIDERS: PCP Internal Medicine; Visit Provider Surgery
DX: C50.911 Malignant neoplasm of unspecified site of right female breast (principal)
CPT/HCPCS: 99214

== ENCOUNTER → 2023-05-24 09:18 | Outpatient (BNVA) | payer BC, SELFPAY | PROVIDERS: PCP Internal Medicine; Visit Provider Surgery | DX: R92.1 Mammographic calcification found on diagnostic imaging of breast (principal); N63.10 Unspecified lump in the right breast, unspecified quadrant ==

== ENCOUNTER 2023-05-25 07:54 | Outpatient (REF) | payer BC, SELFPAY ==
--- NOTE | ~2023-05-25 | MM_ITS ---
EXAMINATION: STEREOTACTIC TOMOSYNTHESIS-GUIDED VACUUM-ASSISTED BREAST BIOPSY, LEFT SPECIMEN RADIOGRAPH, LEFT POST PROCEDURE DIGITAL MAMMOGRAM, LEFT CLINICAL INFORMATION: Subtle calcifications left breast posterior one third upper inner quadrant recommended for biopsy versus MRI. COMPARISON: 05/17/2023, 04/18/2023, 04/08/2023, and dating back to 2018. TECHNIQUE/PROCEDURE: Informed consent was obtained from the patient after discussion of the benefits, risks, and alternatives to biopsy today. Patient appeared to understand. Gave opportunity for questions. Patient signed consent form. BIOPSY TABLE: 1-800-DOCTORS Prone Biopsy System. LESION: Grouped calcifications. LOCAL ANESTHESIA: 4 mL 1% lidocaine; 8 mL 1% lidocaine with epinephrine. DERMATOTOMY: Single skin nessa dermatotomy performed. NEEDLE: [employer]u Eviva 9-gauge vacuum assisted core biopsy device. APPROACH: medial lateral. TARGETING: Combination of digital breast tomosynthesis and stereotactic digital mammography used for targeting. CORES: 8. CLIP: Top hat-shaped. SPECIMEN RADIOGRAPH: Specimen radiograph is taken in separate room using digital mammography. Several subtle index calcifications are in the excised cores. POST PROCEDURE UNILATERAL DIGITAL MAMMOGRAM: The post biopsy mammogram is performed in separate room using separate digital mammography equipment from the biopsy procedure. CC and ML views are obtained. The breasts are heterogeneously dense, which may obscure small masses (breast composition category: c). The clip marker is in accurate position. The calcifications appear decreased at the biopsy site. No gross hematoma. The patient tolerated the procedure well. No immediate complications. Home instructions reviewed with the patient. Final pathology results are pending. MM/MM stereotactic biopsy LT IMPRESSION: 1. Digital tomosynthesis-guided core biopsy left breast with clip placement. 2. Specimen radiograph taken and post procedure mammogram. There is satisfactory and accurate positioning of the biopsy clip. 3. Final pathology results pending. An addendum report will be issued.
--- NOTE | ~2023-05-25 | MM_ITS ---
EXAMINATION: STEREOTACTIC TOMOSYNTHESIS-GUIDED VACUUM-ASSISTED BREAST BIOPSY, RIGHT SPECIMEN RADIOGRAPH, RIGHT POST PROCEDURE DIGITAL MAMMOGRAM, RIGHT CLINICAL INFORMATION: Suspicious calcifications 11:00: axis right breast. Images were recommended for biopsy. 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 MRI is pending post biopsies. COMPARISON: 05/17/2023 diagnostic views right breast. TECHNIQUE/PROCEDURE: Informed consent was obtained from the patient after discussion of the benefits, risks, and alternatives to biopsy today. Patient appeared to understand. Gave opportunity for questions. Patient signed consent form. BIOPSY TABLE: [employer] Affirm Prone Biopsy System. LESION: Grouped subtle calcifications in the 11:00 axis. LOCAL ANESTHESIA: 4 mL 1% lidocaine; 8 mL 1% lidocaine with epinephrine. DERMATOTOMY: Single skin nessa dermatotomy performed. NEEDLE: ClearAccess Eviva 9-gauge vacuum assisted core biopsy device. APPROACH: craniocaudal. TARGETING: Combination of digital breast tomosynthesis and stereotactic digital mammography used for targeting. CORES: 7. CLIP: ClearAccess SecurMark Cylinder-shaped marker. SPECIMEN RADIOGRAPH: Specimen radiograph is taken in separate room using digital mammography. Several of the index calcifications are in the excised cores. POST PROCEDURE UNILATERAL DIGITAL MAMMOGRAM: The post biopsy mammogram is performed in separate room using separate digital mammography equipment from the biopsy procedure. CC and ML views are obtained. The breasts are heterogeneously dense, which may obscure small masses (breast composition category: c). The clip marker is in accurate position. The calcifications are markedly decreased at the biopsy site. No gross hematoma. The patient tolerated the procedure well. No immediate complications. Home instructions reviewed with the patient. Final pathology results are pending. MM/MM stereotactic biopsy RT IMPRESSION: 1. Digital tomosynthesis-guided core biopsy right breast calcifications of 11:00 axis with clip placement. 2. Specimen radiograph taken and post procedure mammogram. There is satisfactory and accurate positioning of the biopsy clip. 3. Final pathology results pending. An addendum report will be issued.
[2023-05-25] MEDS: Lidocaine HCl 1 % 20 ML VIAL 4 ML SUBCUT ×2 (12:01→12:06)
[2023-05-25] MEDS: Sodium Bicarbonate 8.4% 50 MEQ/50 ML VIAL SUBCUT ×2 (12:02→12:07)
== END 2023-05-25 07:55 | disposition home or self-care (01) ==
LOC: HO.MAMMO 07:54
PROVIDERS: PCP Internal Medicine; Visit Provider Surgery
DX: R92.1 Mammographic calcification found on diagnostic imaging of breast (principal)
CPT/HCPCS: 19081; 88305; A4648

== ENCOUNTER → 2023-05-25 08:00 | Outpatient (BNV) | payer BC, SELFPAY | PROVIDERS: PCP Internal Medicine; Visit Provider Radiology Diagnostic Radiology | DX: R92.1 Mammographic calcification found on diagnostic imaging of breast (principal) | CPT/HCPCS: 19081; 19082 ==

== ENCOUNTER → 2023-05-25 14:26 | Outpatient (BNV) | payer BC, SELFPAY | PROVIDERS: PCP Internal Medicine; Visit Provider Internal Medicine Medical Oncology | DX: C50.911 Malignant neoplasm of unspecified site of right female breast (principal) | CPT/HCPCS: 99204; 99213 ==

== ENCOUNTER 2023-06-02 16:32 | Outpatient (REF) | payer BC, SELFPAY ==
--- NOTE | ~2023-06-02 | MR_ITS ---
EXAMINATION: MR BREAST WITHOUT AND WITH CONTRAST, BILATERAL CLINICAL INFORMATION: Newly diagnosed right breast cancer, 6:00, one CM from the nipple. Evaluate extent disease. Recent benign stereotactic biopsy, left breast, upper inner quadrant recent benign stereotactic biopsy, right breast, 11:00. COMPARISON: Mammogram and ultrasound 04/18/2023 TECHNIQUE: Imaging was performed with a dedicated breast coil. Prior to the administration of contrast, bilateral axial T1 and bilateral axial T2 weighted sequences were obtained. After the uneventful administration of?10 mL of Gadavist, dynamic contrast-enhanced VIBRANT series through the breasts in the axial plane were performed. Subtracted images were performed and reviewed. A delayed sagittal sequence through both breasts was acquired. Additionally, CAD post-processing, including maximum intensity projections, 3-D reconstructions and kinetic analysis, were performed an independent workstation and reviewed by the interpreting radiologist is a portion of this exam. FINDINGS: The patient's fibroglandular tissue demonstrates moderate background enhancement. LEFT BREAST: Postbiopsy changes with some associated enhancement are demonstrated in the upper inner and posterior left breast with 8 mm of associated enhancement and T2 hyperintensity. Findings are consistent with recent benign stereotactic biopsy. There is mild to moderate low-level background parenchymal enhancement. A few scattered foci of enhancement are present. No definite suspicious nonmass or mass enhancement. Review of the kinetic images demonstrates no additional suspicious findings. RIGHT BREAST: Similar to the contralateral side, there is diffuse background parenchymal enhancement. In the 6:00 position, 2.3 cm from the nipple, there is an irregular enhancing mass measuring 0.6 x 0.6 x 0.8 cm (image 55, series 100). Finding represents the known index malignancy. Biopsy clip artifact is noted along the anterior and inferior aspect of the mass. The closest skin distance is lateral at a distance of approximately 1.6 cm. The distance to the pectoralis fascia is 0.5 cm. The kinetics are plateau or type II and there is prominent vascular recruitment. No MRI evidence of chest wall invasion. Adjacent post procedure hematoma measuring up to 1.4 cm. There is asymmetric nipple retraction compared to the contralateral left breast. Biopsy clip artifact identified in the 9:00 position of the right breast, 1.6 cm from the nipple at the site of recent Ceretec biopsy. No other suspicious nonmass or mass enhancement. Review of the kinetic images demonstrates no additional suspicious findings. There is no suspicious internal mammary chain or axillary adenopathy. Limited views of the chest and abdomen are unremarkable. MR/MR breast BI wo/w con IMPRESSION: 1. Unifocal carcinoma, right breast, 6:00. No MRI findings to suggest invasion of the chest wall. 2. Bilateral unremarkable benign stereotactic biopsy sites. No MRI evidence of additional disease in either breast. ASSESSMENT: LEFT BREAST: BI-RADS 2 - Benign Findings. RIGHT BREAST: B-RADS 6 - Known Malignancy - Appropriate action should be taken. RECOMMENDATIONS: Appropriate action for known right breast cancer.
== END 2023-06-02 16:33 | disposition home or self-care (01) ==
LOC: HO.MRI 16:32
PROVIDERS: PCP Internal Medicine; Visit Provider Internal Medicine Medical Oncology
DX: C50.911 Malignant neoplasm of unspecified site of right female breast (principal)
CPT/HCPCS: 77049

== ENCOUNTER 2023-06-08 14:46 | Outpatient (AMB) | payer BC, SELFPAY ==
--- NOTE | 2023-06-08 14:59 | A.OFFVIS_ITS ---
Intake Vital Signs 06/08/23 15:00 Height 5 ft 2 in Weight 105 lb 2.568 oz BMI 19.2 BP 147/63 H Blood Pressure Location Rt brachial Position Sitting Pulse 88 Intake Visit Reasons: breast calcifications, biopsy results Intake Note: This patient presents for a follow-up assessment for breast biopsy results. Patient c/o; reports no complaints or changes at this time. Gis Analyst Required: No Accompanied by: Family/Other Allergies Seasonal Allergies Allergy (Verified 06/08/23 15:01) headaches itchy eyes, sneezing,rash Medication List - Last Reconciled 06/08/23 by Samir Escobar MD drospirenone-ethinyl estradiol 3-0.03 mg (Fariba) 3 tabs PO DAILY fexofenadine (Marilynn Allergy) 180 mg PO DAILY multivitamin 1 tab PO DAILY HPI breast calcifications, biopsy results HPI Details 52-year-old female here because of mammo gram findings. She had undergone screening mammography showing calcifications on both breasts. She had been brought back in for diagnostic mammogram and ultrasound. There was note of irregularly marginated hypoechoic mass in the right breast at the 6 o'clock position. This also appears to be close to the chest wall. On the upper inner quadrant of the left breast was note of indeterminate calcifications as well. Stereotactic biopsy of these 2 areas were eventually done by the radiologist. This had shown an invasive carcinoma on the right breast, with both ductal and lobular features. I had sent her for an MRI as it was mentioned that the lesion appeared to be very close to the chest wall. She had previous mammogram studies showing fibroglandular densities on her breasts. She denies any palpable breast masses or nipple or skin changes. Her menarche was at age of 15. She was never . She still has her periods. Her sister was diagnosed to have breast cancer at age of 35. The patient herself had BRCA testing which was negative. She did have an open biopsy for calcifications on the right breast with Dr. Amador in 2008 in this showed sclerosing adenosis and ductal hyperplasia. She has had multiple and regular g along with MRI since then. The patient also points to a mass on the posterior neck. She had excision done before by Dr. 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 However, she says that this has recurred. [facility] Medical History Calcification of both breasts on mammography Colon cancer screening Seasonal allergic rhinitis Breast calcifications Surgical History History of arthroscopy of left shoulder Family History Father No problems noted. Mother CVD (cerebrovascular disease) Stroke Sister Breast cancer Paternal Aunt Breast cancer Paternal Grandfather Colon cancer Brother Lymphoma Social History Household Members: None Housing: House Alcohol intake: current Comment: once q 3 month 1-2 glasses Patient Tobacco Use Status: Former Tobacco user Tobacco use type: Cigarette Years Smoked: college e-Cigarette/Vaping Use: Never Used Second Hand Smoke Exposure: No service: No Current occupational status: employed Cognitive needs: No Hearing needs: No Vision needs: No Female Reproductive History Menstrual Age of Menarche: 15 Review of Systems Const Denies chills and Denies fever(s) Card Denies chest pain, Denies dyspnea and Denies dyspnea on exertion Resp Denies cough, Denies dyspnea and Denies dyspnea on exertion GI Denies hematochezia and Denies change in bowel habits Denies hematuria Musc Denies back pain and Denies limited range of motion Neuro Denies focal weakness and Denies convulsions Psych Denies depression and Denies mood swings Physical Exam Vital Signs: Last Vital Signs Pulse 88 06/08/23 15:00 BP 147/63 H 06/08/23 15:00 BMI result Body Mass Index 19.2 Const General: comfortable and no acute distress Orientation/consciousness: patient oriented x3 Neck Neck: Yes no lymphadenopathy Chest Other: No palpable breast masses, no axillary lymphadenopathy Resp Auscultation: clear to auscultation bilaterally Cardio Rhythm: regular rhythm GI Palpation (GI): Soft to palpation, nontender and no guarding Neuro General: patient oriented x3 Assessment & Plan Assessment & Plan (1) Breast cancer, right: Comment: May 2023 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 Code(s): C50.911 - Malignant neoplasm of unspecified site of right female breast Plan: She has recent diagnosis of right breast cancer with invasive and lobular features. Her MRI did not reveal any suspicious pathology on the left breast . I explained to her the option of breast conservation therapy with lumpectomy followed by radiation, along with sentinel biopsy. She understands the other option of mastectomy. She wants to proceed with mastectomy with sentinel node biopsy. I explained the risks including but not limited to bleeding, infections, hematoma, postop pain, poor healing, as well as the benefits and alternatives The rest of her treatment will depend on the findings of the final pathology including the sentinel nodes. Coding Level of Care Code Est Pt Level 4 (79722) Diagnoses Breast cancer, right C50.911
[2023-06-08 15:00] VITALS: BP 147/63; PULSE 88; BMI 19.2
== END 2023-06-08 15:22 | disposition home or self-care (01) ==
PROVIDERS: PCP Internal Medicine; Visit Provider Surgery
DX: C50.911 Malignant neoplasm of unspecified site of right female breast (principal)
CPT/HCPCS: 99214

== ENCOUNTER → 2023-06-08 14:46 | Outpatient (BNVA) | payer OTHER, SELFPAY | PROVIDERS: PCP Internal Medicine; Visit Provider Surgery ==

== ENCOUNTER 2023-07-04 07:26 | Day surgery (SDC) | payer BC, SELFPAY ==
[2023-06-20 10:03] VITALS: BMI 19.6
--- NOTE | 2023-07-03 08:50 | P.CONAN_ITS ---
Documented by User: Candi Ward NP 07/03/23 08:52 HPI - Anesthesia Eval Consult details Narrative: 52yo F for Right Mastectomy, Right [place] Node Biopsy s/p colo 09/2022 with MAC PMFSH Active Problems Active Problems: All Active Problems (Updated 06/20/23 @ 10:06 by Alycia Alfred, HUBERT) Breast cancer, right (Acute) Keratosis (Acute) Neck mass (Acute) Hypertriglyceridemia (Acute) Shoulder pain, right (Acute) Occipital headache (Acute) Bunion (Acute) Annual physical exam (Acute) Calcification of both breasts on mammography (Acute) Breast calcifications (Acute) Past Medical History Medical History (Updated 06/20/23 @ 10:06 by Alycia Alfred RN) History of torn meniscus of left knee Calcification of both breasts on mammography Seasonal allergic rhinitis Colon cancer screening Breast calcifications Family History Family History Father No problems noted. Mother CVD (cerebrovascular disease) Stroke Sister Breast cancer Paternal Aunt Breast cancer Paternal Grandfather Colon cancer Brother Lymphoma Surgical History Surgical History (Updated 06/20/23 @ 10:07 by Alycia Alfred RN) Hx of bilateral breast biopsy (05/25/23) Hx of colonoscopy (~09/2022) History of arthroscopy of left shoulder History of Problems with Anesthesia: No Social History Social History (Updated 06/20/23 @ 10:02 by Alycia Alfred RN) Household Members: None Housing: House Are you a primary physician locums urgent care to a significant other at home: No Do you presently have visiting nurse or other home services: No Alcohol intake: current Comment: once q 3 month 1-2 glasses Patient Tobacco Use Status: Former Tobacco user Quit Date: 1991 Tobacco use type: Cigarette Years Smoked: college e-Cigarette/Vaping Use: Never Used Second Hand Smoke Exposure: No Use of substances other than those prescribed or required for medical reasons: No Have you been hit, kicked, punched, or otherwise hurt by someone within the past year? If so, by whom?: No Are you DNR?: No Advance Directives: No Advance Directives Information Provided: Yes Advance Directives on File: No Healthcare Proxy: No Recently lost weight without trying: No Nutrition Risks: No Nutritional Risk Patient : No FDLMP: 06/20/2023 : No Poor oral hygiene: No service: No Current occupational status: employed Cognitive needs: No Hearing needs: No Vision needs: No Meds Allergies Allergy/AdvReac Type Severity Reaction Status Date / Time Seasonal Allergies Allergy headaches Verified 06/08/23 15:01 itchy eyes, sneezing,rash Home Medications Medication Instructions Recorded Confirmed Last Taken Type fexofenadine 180 mg tablet 180 mg PO DAILY 05/05/20 06/20/23 07/03/23 History (Marilynn Allergy) multivitamin 1 tab PO DAILY 05/05/20 06/20/23 07/03/23 History drospirenone 3 mg-ethinyl 3 tab PO DAILY 09/28/22 06/20/23 07/03/23 History estradiol 0.03 mg tablet (Fariba) acetaminophen 325 mg tablet 650 mg PO Q6H PRN Pain 06/20/23 06/20/23 07/03/23 History Exam Height,Weight and Vital Signs: Height 5 ft 1 in Weight 47.174 kg Pertinent Lab Results Pertinent Lab Results: Laboratory Tests 05/25/23 14:59 WBC 7.7 Hgb 13.1 Hct 38.4 Plt Count 237 Sodium 143 Potassium 4.0 Chloride 111 H Carbon Dioxide 24 BUN 12 Creatinine 1.03 Assessment and Plan Assessment Anesthesia Assessment: Chart Reviewed Final Anesthetic Review History of Problems with Anesthesia: No Documented by User: Melissa Kidd MD 07/04/23 11:31 [facility] Past Medical History Medical History (Updated 06/20/23 @ 10:06 by Alycia Alfred RN) History of torn meniscus of left knee Calcification of both breasts on mammography Seasonal allergic rhinitis Colon cancer screening Breast calcifications Family History Family History Father No problems noted. Mother CVD (cerebrovascular disease) Stroke Sister Breast cancer Paternal Aunt Breast cancer Paternal Grandfather Colon cancer Brother Lymphoma Family history of problems with anesthesia: No Surgical History Surgical History (Updated 06/20/23 @ 10:07 by Alycia Alfred RN) Hx of bilateral breast biopsy (05/25/23) Hx of colonoscopy (~09/2022) History of arthroscopy of left shoulder Social History Social History (Updated 06/20/23 @ 10:02 by Alycia Alfred RN) Household Members: None Housing: House Are you a primary physician locums urgent care to a significant other at home: No Do you presently have visiting nurse or other home services: No Alcohol intake: current Comment: once q 3 month 1-2 glasses Patient Tobacco Use Status: Former Tobacco user Quit Date: 1991 Tobacco use type: Cigarette Years Smoked: college e-Cigarette/Vaping Use: Never Used Second Hand Smoke Exposure: No Use of substances other than those prescribed or required for medical reasons: No Have you been hit, kicked, punched, or otherwise hurt by someone within the past year? If so, by whom?: No Are you DNR?: No Advance Directives: No Advance Directives Information Provided: Yes Advance Directives on File: No Healthcare Proxy: No Recently lost weight without trying: No Nutrition Risks: No Nutritional Risk Patient : No FDLMP: 06/20/2023 : No Poor oral hygiene: No service: No Current occupational status: employed Cognitive needs: No Hearing needs: No Vision needs: No Meds Allergies Allergy/AdvReac Type Severity Reaction Status Date / Time Seasonal Allergies Allergy headaches Verified 06/08/23 15:01 itchy eyes, sneezing,rash Home Medications Medication Instructions Recorded Confirmed Last Taken Type fexofenadine 180 mg tablet 180 mg PO DAILY 05/05/20 06/20/23 07/03/23 History (Marilynn Allergy) multivitamin 1 tab PO DAILY 05/05/20 06/20/23 07/03/23 History drospirenone 3 mg-ethinyl 3 tab PO DAILY 09/28/22 06/20/23 07/03/23 History estradiol 0.03 mg tablet (Fariba) acetaminophen 325 mg tablet 650 mg PO Q6H PRN Pain 06/20/23 06/20/23 07/03/23 History Exam Airway Mallampati Class: II TM Dist: >3cm Neck ROM: Full Heart: rrr Lungs: cta Assessment and Plan Assessment Anesthesia Assessment: Anesthesia Plan Discussed Final Anesthetic Review Family History of Problems with Anesthesia: No NPO: Yes ASA Class: III Final Preanesthetic Review: No Changes in Pt Med Stat, Meds/Allgs Chart Reviewed, Consent Obtained/Reviewed and Anes Risks/Benef Reviewed Patient Risk: Intermediate Procedure Risk: Intermediate Anesthetic Plan Anesthetic Plan: GA and Regional Block Disposition: Standard PACU
[2023-07-04] VITALS (12 sets, daily range): BP systolic 107–151; BP diastolic 59–92; PULSE 65–98; RESP 14–18; TEMP 36.2–36.4; O2SAT 97–100; BMI 19.4
--- NOTE | 2023-07-04 07:54 | PHA.MEDREC ---
Pharmacy Consult ? Medication Reconciliation Pharmacy has reviewed the medication reconciliation.
[2023-07-04 09:39] LABS: UPreg QC Valid YES; Urine Pregnancy NEGATIVE (NEGATIVE)
[2023-07-04] MEDS: Lactated Ringers 1,000 ML 100 ML IVCONT (09:42)
--- NOTE | 2023-07-04 10:41 | MHC.SHP ---
Pre-Procedural Eval Section A - 24 Hr Update-Section A only Date of Service: 07/04/23 The patient is an INPATIENT: No Changes since office visit: Yes Cold of Flu in the past 2 weeks, Yes New Medical Problems, Yes Changes in Medication and Yes Patient answered all questions The patient has been examined within 24 hours of the surgical procedure. The History & Physical has been completed within 30 days and I have reviewed it.: Yes Section B - Complete if H&P > 30 days Chief Complaint: right breast cancer Allergies: Allergies Allergy/AdvReac Type Severity Reaction Status Date / Time Seasonal Allergies Allergy headaches Verified 06/08/23 15:01 itchy eyes, sneezing,rash Plan I have reviewed the history and physical and performed a pertinent physical examination on my patient. No changes have occurred unless specified. Time Spent With Patient Time: Total time managing care of this patient today ____ minutes.
--- NOTE | 2023-07-04 12:40 | P.OP_ITS ---
Operative Note Operative Note Date of Service: 07/04/23 Narrative: Preop diagnosis: Right breast invasive cancer, with ductal and lobular features Postop diagnosis: The same Procedure: Total mastectomy, right breast with sentinel node biopsy using methylene blue dye; 3 sentinel lymph nodes submitted Surgeon: Samir Escobar MD observation assistant: CAIN Fernandez The patient is a 52-year-old female with recent diagnosis of an invasive cancer of the right breast, with ductal and lobular features. She preferred to undergo total mastectomy instead of breast conservation treatment. She understood the technique of total mastectomy and sentinel biopsy. She was aware of the risks, benefits, and alternatives. She was brought to the operating room. She was placed supine under general anesthesia via laryngeal mask airway. A pectoral block was done by the anesthesiologist. A surgical time-out was done. The patient received cefazolin 2 g IV preoperatively I injected a total of 5 cc of methylene blue dye into the subareolar area in 4 different quadrants. It is noted that nuclear scintigraphy was unavailable on the day of this procedure. I marked my planned line of incision on the breast and then infiltrated this with lidocaine 1%. I made the elliptical incision with a blade 15 around the areolar complex. This was carried down through the full-thickness of the skin exam days fat. I developed by superior flap, leaving behind about 7-8 mm of subcutaneous tissue. I developed this flap on a plane of dissection which I made as consistent in thickness as possible. I was careful not to create buttonholing of the skin. I carried this superior flap all the way to just below the clavicle. This was extended to the sternum. I then proceeded to develop my inferior flap as well in a similar fashion. I carried this flap down all the way to just at the approximate level of the inframammary crease. I then proceeded to incise the pectoralis fascia starting medially using electrocautery. I then developed a plane of dissection below this pectoralis fascia in separate this above the pectoralis muscle itself. I repaired the this entire breast tissue off of the pectoralis along this well-defined plane of dissection. I carried this laterally until I reached the edge of the pectoralis muscle. I then proceeded to complete dissection of the tail of the breast tissue off the pectoralis. I marked the lateral aspect with a stitch . I then proceeded to control all bleeders. There were some oozing from 2-3 perforating vessels which were able to easily control with electrocautery. I then proceeded to identify sentinel nodes in the axilla. I entered the axilla by dividing the fascia and explored this axilla for any discoloration from the methylene blue dye. I did blunt dissection with right angle clamp until was able to identify lymph nodes that were colored blue by the methylene blue dye. I was able to actually identify 3 of this small lymph nodes. I defined these lymph nodes with blunt dissection and excised these by applying a right angle clamp across attachments to the axillary fat and dividing this with scissors. I ligated all 3 area with Polysorb 3-0 ties to ensure hemostasis. Three of this were sent for pathologic examination. I copiously irrigated the axilla as well as the bare pectoralis. I ensured hemostasis with electrocautery on any oozing area. Once this was confirmed, I proceeded to then position a #7 MARLI drain underneath the inferior flap going medially and going up towards the superior flap. This was brought out through an exit site at the lateral aspect of the inferior flap. This drain was secured to the skin with a nylon 3-0 stitch. I reabsorbed the pectoralis. Good hemostasis was confirmed. I then reapposed the subdermal layer with simple interrupted Polysorb 3-0 sutures. Skin closure was achieved with Polysorb 4-0 subcuticular running sutures. Thick dressings and a breast binder was then applied. The procedure was completed. The patient tolerated the procedure well. There were no immediate complications. Initial and final counts of sponges and instruments were correct. Estimated blood loss was about 25 cc The patient was extubated without difficulty and transferred to the recovery room with stable vital signs.
[2023-07-04] MEDS: oxyCODONE HCl Immed Release 5 MG TABLET PO (14:36)
--- NOTE | 2023-07-04 15:25 | PM.EVENT ---
Event Note Date of Service: 07/04/23 Event Note: seen postop s/p mastectomy, sentinel node biopsy, right appears comfortable stable VS MARLI - dark serosanguinous pain mgt breast binder doing well postop ffup cultures Time Spent With Patient Time: Total time managing care of this patient today ____ minutes.
[2023-07-04] MEDS: Lactated Ringers 1,000 ML 80 ML IVCONT (15:43)
[2023-07-04] MEDS: Acetaminophen 1,000 MG/100 ML PIGGYBACK 400 MG IV ×2 (17:40→23:38)
[2023-07-05 03:09] VITALS: BP 118/58; PULSE 75; RESP 18; TEMP 36.8; O2SAT 98
[2023-07-05] MEDS: Lactated Ringers 1,000 ML 80 ML IVCONT (04:24)
[2023-07-05] MEDS: Acetaminophen 1,000 MG/100 ML PIGGYBACK 400 MG IV ×2 (05:31→11:35)
[2023-07-05 05:52] LABS: MANUAL DIFF FLAG NO
[2023-07-05 05:57] LABS: Basophils Percent Auto 0.1 % (0-2); Eosinophils Percent Auto 0.1 % (0-4); Hematocrit 34.8 % (37.0-47.0); Hemoglobin 11.7 g/dl (12.0-16.0); Imm Gran Abs Auto 0.07 X10*3/uL (0.00-0.03); Imm Gran Pct Auto 0.6 % (0.0-0.4); Lymphocytes Absolute Auto 1.7 X10*3/uL (1.2-4.9); Lymphocytes Percent Auto 14.1 % (20-40); Mean Corpuscular HGB Conc 33.6 g/dl (31.0-35.0); Mean Corpuscular Volume 89.2 fL (80.0-98.0); Mean Platelet Volume 9.6 fL (9.4-12.3); Monocytes Absolute Auto 1.2 X10*3/uL (0.1-1.2); Monocytes Percent Auto 9.8 % (2-11); Neutrophils Absolute Auto 9.3 x10*3/uL (2.0-8.3); Neutrophils Percent Auto 75.3 % (45-73); Platelet Count 214 X10*3/uL (160-400); Red Cell Distribution Width 11.4 % (11.0-16.0); White Blood Count 12.3 X10*3/uL (4.8-10.8)
[2023-07-05 06:17] LABS: Anion Gap 11 (12-20); Blood Urea Nitrogen 10 mg/dL (9-16); Calcium 8.4 mg/dL (8.4-10.2); Carbon Dioxide 21 mmol/L (22-29); Chloride 109 mmol/L (96-108); Estimated Glomerular Filt Rate > 60; Glucose Random 100 mg/dL (60-115); Sodium 137 mmol/L (135-145)
[2023-07-05 07:30] VITALS: BP 116/68; PULSE 73; RESP 17; TEMP 36.1; O2SAT 98
--- NOTE | 2023-07-05 07:34 | PM.PNGS ---
Subjective Subjective Date of Service: 07/05/23 <Caren Fernandez PA-C - Last Filed: 07/05/23 07:38> 07/05/23 <Samir Escobar MD - Last Filed: 07/05/23 08:04> Interval history: Feels well this morning. Has mild incisional soreness- has only required IV tylenol. Tolerating solid diet last night without nausea or vomiting. <Caren Fernandez PA-C - Last Filed: 07/05/23 07:38> Physical Exam Vital Signs: Vital Signs: Last Vital Signs Temp 96.9 F 07/05/23 07:30 Pulse 73 07/05/23 07:30 Resp 17 07/05/23 07:30 BP 116/68 07/05/23 07:30 Pulse Ox 98 07/05/23 07:30 O2 Del Method Room Air 07/05/23 07:30 O2 Flow Rate 2 07/04/23 13:50 BMI result Body Mass Index 20.0 <Caren Fernandez PA-C - Last Filed: 07/05/23 07:38> Const: General: comfortable, no acute distress and well developed <Caren Fernandez PA-C - Last Filed: 07/05/23 07:38> Orientation/consciousness: patient oriented x3 <VIDHI Krishna Last Filed: 07/05/23 07:38> Chest: Other: right mastectomy site dressing clean, mild soreness MARLI drain with sanguineous drainage <Caren Fernandez PA-C - Last Filed: 07/05/23 07:38> Resp: Effort & Inspection: normal respiratory effort <Caren Fernandez PA-C - Last Filed: 07/05/23 07:38> Skin: General skin exam: no rashes or lesions noted <VIDHI Krishna Last Filed: 07/05/23 07:38> Neuro: General: patient oriented x3 and moves all extremities <VIDHI Krishna Last Filed: 07/05/23 07:38> Objective Data Active Medications Al Hydroxide/Mg Hydroxide (Magnesium Hydrox/Alum Hydrox 30 Ml Oral.Susp) 30 ml PO Q4H PRN PRN Reason: Heartburn/Nausea Docusate Sodium (Docusate Sodium 100 Mg Capsule) 100 mg PO BID FORMERLY [facility], [facility]1983 Last Admin: 07/05/23 06:53 Dose: Not Given Documented By: MOE Non-Admin Reason: IV Running Heparin Sodium (Porcine) (Heparin Sodium,Porcine 5,000 Unit/Ml Vial) 5,000 unit SUBCUT Q12H FOR[facility]LY [facility], 1928[facility]1983 Last Admin: 07/05/23 06:54 Dose: Not Given Documented By: MOE Non-Admin Reason: IV Running Acetaminophen (Ofirmev) 1,000 mg in 100 mls @ 400 mls/hr IV Q6H [facility], [facility]1983 Stop: 07/05/23 12:44 Last Infusion: 07/05/23 05:46 Dose: Infused Documented By: MADHAVI Lactated Ringer's (Lr) 1,000 mls @ 80 mls/hr IVCONT .[id number] FOR[facility]LY [facility], [facility]1983 Last Admin: 07/05/23 04:24 Dose: 80 mls/hr Documented By: MADHAVI Melatonin (Melatonin 3 Mg Tablet) 6 mg PO BEDTIME PRN PRN Reason: Insomnia Morphine Sulfate (Morphine Sulfate 2 Mg/Ml Cartridge) 2 mg IVPUSH Q3H PRN; Protocol PRN Reason: Pain, Severe (Pain Scale 7-10) Ondansetron HCl (Ondansetron Hcl 4 Mg/2 Ml Vial) 4 mg IVPUSH Q8H PRN PRN Reason: Nausea and Vomiting Oxycodone HCl (Oxycodone Hcl Immed Release 5 Mg Tablet) 5 mg PO Q4H PRN PRN Reason: Pain, Moderate(Pain Scale 4-6) Last Admin: 07/04/23 14:36 Dose: 5 mg Documented By: ANJALI Sodium Chloride (0.9 % Sodium Chloride Flush 3 Ml Syringe) 3 ml IVFLUSH QSHIFT FOR[facility], [facility] Last Admin: 07/05/23 06:53 Dose: Not Given Documented By: MOE Non-Admin Reason: IV Running <Caren Fernandez PA-C - Last Filed: 07/05/23 07:38> Labs CBC & Chem 7: 07/05/23 05:32 07/05/23 05:32 <Caren Fernandez PA-C - Last Filed: 07/05/23 07:38> Labs: Laboratory Results - last 24 hr 07/04/23 07/04/23 07/05/23 09:10 09:24 05:32 MCV 89.2 MCH 30.0 MCHC 33.6 RDW 11.4 Plt Count 214 MPV 9.6 Immature Gran % (Auto) 0.6 H Neut % (Auto) 75.3 H Lymph % (Auto) 14.1 L [place] % (Auto) 9.8 Eos % (Auto) 0.1 Baso % (Auto) 0.1 Lymph # (Auto) 1.7 [place] # (Auto) 1.2 Eos # (Auto) 0.0 Baso # (Auto) 0.0 Abs Immat Gran (auto) 0.07 H Absolute Neuts (auto) 9.3 H Absolute Nucleated RBC 0.000 Nucleated RBC % (auto) 0.0 Anion Gap 11 L Estim Creat Clear Calc 57.0 Estimated GFR > 60 Random Glucose 100 Calcium 8.4 Urine Test NEGATIVE Blood Type B Positive Antibody Screen NEGATIVE <Caren Fernandez PA-C - Last Filed: 07/05/23 07:38> Procedures Date of Service Date of Service: 07/05/23 <Caren Fernandez PA-C - Last Filed: 07/05/23 07:38> 07/05/23 <Samir Escobar MD - Last Filed: 07/05/23 08:04> Progress Note: A&P Assessment and plan (1) Breast cancer, right: Status: Acute <Caren Fernandez PA-C - Last Filed: 07/05/23 07:38> Assessment and Plan: Status post mastectomy and sentinel node biopsy No events overnight Looks well Good pain control MARLI drain with minimal old blood She says she is for the with going home today Plan to change dressings before she gets discharged this afternoon Seen and examined independently Agree with CAIN Fernandez <Samir Escobar MD - Last Filed: 07/05/23 08:04> (2) S/P right mastectomy: Status: Acute <Caren Fernandez PA-C - Last Filed: 07/05/23 07:38> Assessment and Plan: POD #1 s/p right simple mastectomy with right axillary sentinel lymph node biopsy. Doing well post op, pain well controlled without opioids. Dressing c/d/i, MARLI output with moderate sanguineous drainage. H/H ok, vitals stable. Feels ready for discharge to home. Dc later today with MARLI in place,, will change dressing before. Educate on MARLI drain care. Can f/u in office in 1 week. <Caren Fernandez PA-C - Last Filed: 07/05/23 07:38> Time Spent With Patient Time: Total time managing care of this patient today ____ minutes. <Caren Fernandez PA-C - Last Filed: 07/05/23 07:38> Quality Stroke Does the patient have a stroke diagnosis?: No <Caren Fernandez PA-C - Last Filed: 07/05/23 07:38> VTE Prior VTE?: No <Caren Fernandez PA-C - Last Filed: 07/05/23 07:38> VTE Risk Level:: Medical - moderate - high <Caren Fernandez PA-C - Last Filed: 07/05/23 07:38> VTE Device Contraindication: N/A - Device Ordered <Caren Fernandez PA-C - Last Filed: 07/05/23 07:38> VTE Drug Contraindication: N/A - Med Ordered <Caren Fernandez PA-C - Last Filed: 07/05/23 07:38>
--- NOTE | 2023-07-05 10:07 | HO.POSTANES ---
Post Anesthesia Evaluation Post Anesthesia Evaluation Date of Service: 07/05/23 Vital Signs: Vital Signs Temp Pulse Resp BP Pulse Ox O2 Del Method 07/05/23 07:30 96.9 F 73 17 116/68 98 Room Air 07/05/23 03:09 98.2 F 75 18 118/58 L 98 Room Air 07/04/23 23:14 97.1 F 80 18 117/59 L 97 Room Air Anesthesia: Nerve Block and General Mental Status: Awake Pain Control: Satisfactory Nausea/Vomiting: None Hydration: Adequate Anesthesia-Related Issues: No Anes. Related Issues
--- NOTE | 2023-07-05 11:01 | MHC.CM.PN ---
pt will be stayuing with her parents when dcd vna will be ordered per pt she has her own ride home
--- NOTE | 2023-07-05 11:11 | P.DS_ITS ---
DS: Providers Provider Date of Service: 07/05/23 Date of admission: 07/04/23 Date of discharge: 07/05/23 Primary care physician: Tammy Walton MD Attending physician on admission: Samir Escobar Attending physician on discharge: Samir Escobar DS: Diagnosis Discharge Diagnosis (1) Breast cancer, right: Status: Acute (2) S/P right mastectomy: Status: Acute DS: Summary Hospital Course Hospital Course: HPI AT ADMISSION: The patient is a 52-year-old female with recent diagnosis of an invasive cancer of the right breast, with ductal and lobular features. She preferred to undergo total mastectomy instead of breast conservation treatment. She understood the technique of total mastectomy and sentinel biopsy and now presents for the procedure. HOSPITAL COURSE: On 07/04/23, a total mastectomy, right breast with sentinel node biopsy using methylene blue dye was performed by Dr. Escobar without complication. The patient tolerated the procedure well and was admitted to the medical/surgical floor for observation. The patient had an uncomplicated recovery course. On POD #1, she felt well with good pain control without any narcotics. She was OOB and ambulating without difficulty. She was tolerating a solid diet. Her mastectomy incision was clean appearing with viable flaps with some ecchymosis medially. Her MARLI output was moderate sanguineous. H/H was slightly drifted but vitals stable. She felt ready for discharge to home. She was discharged to home on 07/05/23 in stable condition with the MARLI drain in place and VNA services. She is to follow up in the office in 1 week. She was educated on MARLI drain care. Status at Discharge Functional status at discharge: independent ambulation Overall status at discharge: patient is progressing back to baseline Time Attestation Discharge coordination time: Less than 30 minutes Quality: Safe Use of Opioids Does Pt have an Active Cancer Diagnosis on the Problem List?: Yes Opioid Measure Date for [facility] Report: 06/05/23 Opioid Measure Time for [facility] Report: 12:46 Quality: Stroke Does the patient have a stroke diagnosis?: No Physical Exam Vital Signs: Vital Signs: Last Vital Signs Temp 96.9 F 07/05/23 07:30 Pulse 73 07/05/23 07:30 Resp 17 07/05/23 07:30 BP 116/68 07/05/23 07:30 Pulse Ox 98 07/05/23 07:30 O2 Del Method Room Air 07/05/23 07:30 O2 Flow Rate 2 07/04/23 13:50 BMI result Body Mass Index 20.0 Const: General: comfortable, no acute distress and alert Orientation/consciousness: patient oriented x3 Chest: Other: right mastectomy site clean, flaps viable, ecchymosis medially MARLI moderate sanguineous output since placement Resp: Effort & Inspection: normal respiratory effort Skin: General skin exam: no rashes or lesions noted Neuro: General: patient oriented x3 and moves all extremities DS: Data Data Completed and Pending Pending studies at discharge: Pending at discharge 07/04/23 12:23 Surgical [PTH] Routine Labs on day of discharge: Laboratory Results - last 24 hr 07/05/23 05:32 WBC 12.3 H RBC 3.90 L Hgb 11.7 L Hct 34.8 L MCV 89.2 MCH 30.0 MCHC 33.6 RDW 11.4 Plt Count 214 MPV 9.6 Immature Gran % (Auto) 0.6 H Neut % (Auto) 75.3 H Lymph % (Auto) 14.1 L [place] % (Auto) 9.8 Eos % (Auto) 0.1 Baso % (Auto) 0.1 Lymph # (Auto) 1.7 [place] # (Auto) 1.2 Eos # (Auto) 0.0 Baso # (Auto) 0.0 Abs Immat Gran (auto) 0.07 H Absolute Neuts (auto) 9.3 H Absolute Nucleated RBC 0.000 Nucleated RBC % (auto) 0.0 Sodium 137 Potassium 4.0 Chloride 109 H Carbon Dioxide 21 L Anion Gap 11 L BUN 10 Creatinine 0.88 Estim Creat Clear Calc 57.0 Estimated GFR > 60 Random Glucose 100 Calcium 8.4 Discharge Plan Discharge Patient Disposition: Home Health Service Referrals: Samir Escobar MD [Physician] - 1 Week Discharge Medications: New oxycodone 5 mg tablet 5 mg PO Q4H PRN (Reason: pain (scale score 7-10)) Qty: 24 0RF Rx Instructions: Partial Fill upon patient request. Continued drospirenone-ethinyl estradiol [Fariba] 3-0.03 mg tablet 3 tab PO DAILY acetaminophen 325 mg Tablet 650 mg PO Q6H PRN (Reason: Pain) fexofenadine [Marilynn Allergy] 180 mg tablet 180 mg PO DAILY multivitamin Tablet 1 tab PO DAILY Discharge Orders: Discharge Order (Routine); Ordered 07/05/23 Ordered By: Caren Fernandez Diet: Advance to usual diet Activity on Discharge: No heavy lifting Activity Restrictions/Additional Instructions: If the incision area is tender, you may apply an ice pack for short intervals (No more than 20 minutes on, followed by at least 20 minutes off). Do not apply heat. Do not use creams, lotions, or topical antibiotics. These can cause infection or allergic reaction. Ok to shower. You have steri strips on your incision. THese will fall off in ~1 week. NO HEAVY LIFTING (>10lbs) with your right arm. MARLI drain care- empty drain BID and as needed. Record output. Bring record to follow up appointment. Change drain dressing every other day with 4x4. Follow up in office. ([phone]) Call Your Doctor If: ? ? -Your temperature exceeds 101.5? F? ? ? -You experience excessive pain or swelling ? ? -You have an unexpected reaction to medication ? ? -You have excessive bleeding ? ? -You experience continued vomiting/nausea ? ? -Your incision begins to separate ?? ? -Your incision shows signs of infection such as increased redness, swelling, excessive pain, drainage (light blood or clear fluid is normal) or heat
[2023-07-05 11:17] VITALS: BP 108/52; PULSE 80; RESP 18; TEMP 36.9; O2SAT 98
--- NOTE | 2023-07-05 12:42 | W.MHC.F2F ---
Service Date Service Date: 07/05/23 Encounter Date of encounter: 07/05/23 Reasons for Services Signs and symptoms assessed: right mastectomy post operative pain, incision and flap appearance, MARLI drain output Reason for senior living: wound care Homebound: Leaving the home is medically contraindicated at this time without the asist of a device and/or another person due the listed conditions above and below. Reason homebound: weakness related to hospital stay and unable to drive Homebound supporting statement: Ms. Bryant is s/p right simple mastectomy with right axillary sentinel lymph node biopsy. She will need VNA for MARLI drain care. Certification: Based on the above findings, I certify that this patient is confined to the home and needs intermittent senior living care, physical therapy and/or speech therapy, or continues to need occupational therapy. The patient is under my care, and I have initiated the establishment of the plan of care. The patient will be followed by a physician who will periodically review the plan of care. Time Spent With Patient Time: Total time managing care of this patient today ____ minutes.
--- NOTE | 2023-07-05 15:32 | MHC.CM.PN ---
UNABLE TO FIND PT A VNA NOTIFIED DR COLE WHO WILL HAVE PT COME TO OFFICE TOMORROW FOR TEACHING
== END 2023-07-05 13:27 | disposition home health service (06) ==
LOC: HO.SSS 13:57 → HO.S3 14:04
PROVIDERS: Physician Assistant Surgical; Absent Provider Surgery; PCP Internal Medicine; Visit Provider Surgery
PROC: (CPT 19303; principal; 2023-07-04 10:30)
PROC: (CPT 19307; 2023-07-04 10:30)
DX: C50.911 Malignant neoplasm of unspecified site of right female breast (principal); Z80.3 Family history of malignant neoplasm of breast; J30.2 Other seasonal allergic rhinitis; Z79.899 Other long term (current) drug therapy; Z98.890 Other specified postprocedural states; Z87.891 Personal history of nicotine dependence
CPT/HCPCS: 19307; 38792; 36415; 80048; 81025; 85025; 86850; 86900; 86901; 88307; 88341; 88342; 88360; J0131; J0690; J1100; J1170; J2250; J2405; J2704; J2795; J3010; J7120; Q9968

== ENCOUNTER → 2023-07-04 07:26 | Outpatient (BNV) | payer BC, SELFPAY | PROVIDERS: Absent Provider Surgery; PCP Internal Medicine; Visit Provider Surgery | DX: C50.911 Malignant neoplasm of unspecified site of right female breast (principal) | CPT/HCPCS: 19303; 38525; 99024; 99499; G0180 ==

== ENCOUNTER 2023-07-13 09:34 | Outpatient (AMB) | payer BC, SELFPAY ==
--- NOTE | 2023-07-13 09:35 | MHC.OFFVIS ---
Intake Intake Visit Reasons: s/p Total mastectomy, right breast, port removal Intake Note: This patient presents for a post-op assessment status post total mastectomy, right breast, port removal. Pt c/o; reports no complaints at this time. 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 She tolerated procedure well. She is doing well at home and denies any significant complaints. She still has her MARLI drain and this has had very minimal output the past few days. [facility] Medical History History of torn meniscus of left knee Calcification of both breasts on mammography Seasonal allergic rhinitis Colon cancer screening Breast calcifications Surgical History Hx of bilateral breast biopsy (05/25/23) Hx of colonoscopy (~09/2022) History of arthroscopy of left shoulder Family History Father No problems noted. Mother CVD (cerebrovascular disease) Stroke Sister Breast cancer Paternal Aunt Breast cancer Paternal Grandfather Colon cancer Brother Lymphoma Social History Household Members: None Housing: House Are you a primary managed care analyst to a significant other at home: No Do you presently have visiting nurse or other home services: No Alcohol intake: current Comment: counts correct Patient Tobacco Use Status: Former Tobacco user Quit Date: 1991 Tobacco use type: Cigarette Years Smoked: college e-Cigarette/Vaping Use: Never Used Second Hand Smoke Exposure: No service: No Current occupational status: employed Cognitive needs: No Hearing needs: No Vision needs: No Female Reproductive History Menstrual Age of Menarche: 15 Review of Systems Const Denies chills and Denies fever(s) Card Denies chest pain, Denies dyspnea and Denies dyspnea on exertion Resp Denies cough, Denies dyspnea and Denies dyspnea on exertion GI Denies hematochezia and Denies change in bowel habits Denies hematuria Musc Denies back pain and Denies limited range of motion Neuro Denies focal weakness and Denies convulsions Psych Denies depression and Denies mood swings Physical Exam Const General: comfortable and no acute distress Chest Other: Right Mastectomy site well healed, mild ecchymosis, MARLI drain with very minimal deep blood as output Resp Effort & Inspection: normal respiratory effort Assessment & Plan Assessment & Plan (1) Breast cancer, right: Comment: May 2023 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 Code(s): C50.911 - Malignant neoplasm of unspecified site of right female breast Plan: Status post mastectomy on the right with sentinel biopsy. Her final path report shows invasive carcinoma with ductal and lobular features. All 3 sentinel nodes were negative. There was a concurrent in Situ carcinoma with ductal and lobular features as well. Margins are on these are negative. Her tumor is ERPR positive, HER2 low. She therefore has a stage 1 T1 N0 cancer at this time She is doing very well. I removed her MARLI drain. She is to follow-up with Dr. Mullins next week. I will see her in the office in 6 months. We may order for an MRI at that time for her other breast as part of screening. Her results for genetic testing were negative for any clinically significant mutation. Coding Level of Care Code Global (49303) Diagnoses Breast cancer, right C50.911
== END 2023-07-13 10:05 | disposition home or self-care (01) ==
PROVIDERS: PCP Internal Medicine; Visit Provider Surgery
DX: C50.911 Malignant neoplasm of unspecified site of right female breast (principal)
CPT/HCPCS: 99024

== ENCOUNTER → 2023-07-13 09:34 | Outpatient (BNVA) | payer BC, SELFPAY | PROVIDERS: PCP Internal Medicine; Visit Provider Surgery ==

== ENCOUNTER 2023-08-03 12:53 | Outpatient (REF) | payer BC, SELFPAY ==
--- NOTE | ~2023-08-03 | MM_ITS ---
EXAMINATION: BONE DENSITOMETRY CLINICAL INDICATION: Breast cancer, to decide about treatment. COMPARISON: This is the patient's baseline examination. TECHNIQUE: Using a TuneIn DXA System (software version: 13.1) manufactured by [employer], dual-energy x-ray absorptiometry was performed of the lumbar spine and left hip. The images are of good technical quality. Based on ISCD (International Society for Clinical Densitometry) standards of reporting, Z-scores instead of T-scores are reported in this premenopausal woman. Summary results are attached. FINDINGS: AP SPINE L1-L4: BMD 1.165 g/cm2, T-score -0.1, Z-score 1.0, Z-score within expected range for age. LEFT FEMUR, NECK: BMD 0.684 g/cm2, T-score -2.5, Z-score -1.3, Z-score within expected range for age. LEFT FEMUR, TOTAL: BMD 0.713 g/cm2, T-score -2.3, Z-score -1.4, Z-score within expected range for age. IDENTIFIED RISK FACTORS: None listed. HISTORY OF FRACTURE: None listed. MEDICATIONS: Vitamin D, ERT/SERMS. MM/XR DEXA axial skeleton IMPRESSION: 1. DIAGNOSIS: Based on the lowest Z-score value of -1.4 in the total femur, the patient's bone density is within the expected range for age. 2. 10-YEAR FRACTURE RISK PREDICTION, FRAX: Not performed in this perimenopausal patient. 3. Treatment Recommendations: NOF guidelines recommend consideration for treatment in postmenopausal women and men age 50 and older presenting with the following: -A hip or vertebral (clinical or morphometric) fracture. -T-score less than or equal to -2.5 at the femoral neck or spine after appropriate evaluation to exclude secondary causes. -Low bone mass at the hip or spine and a 10-year fracture probability by FRAX of greater than or equal to 3% for hip fracture or greater than or equal to 20% for major osteoporotic fracture based on the [place] adapted WHO algorithm. 4. Other Recommendations: All treatment decisions require clinical judgment and consideration of individual patient factors, including patient preferences, comorbidities, previous drug use, risk factors not captured in the FRAX model (e.g. frailty, falls, vitamin D deficiency, increased bone turnover, interval significant decline in bone density) and possible under or overestimation of fracture risk by FRAX. FUTURE SCAN RECOMMENDATION: People with diagnosed cases of osteoporosis or at high risk for fracture should have regular bone mineral density tests. For patients eligible for Medicare, routine testing is allowed once every 2 years. The testing frequency can be increased to one year for patients who have rapidly progressing disease, those who are receiving or discontinuing medical therapy to restore bone mass, or have additional risk factors.
== END 2023-08-03 12:54 | disposition home or self-care (01) ==
LOC: HO.MAMMO 12:53
PROVIDERS: PCP Internal Medicine; Visit Provider Internal Medicine Medical Oncology
DX: Z13.820 Encounter for screening for osteoporosis (principal); M85.88 Other specified disorders of bone density and structure, other site
CPT/HCPCS: 77080

== ENCOUNTER 2024-01-17 10:57 | Outpatient (AMB) | payer BC, SELFPAY ==
--- NOTE | 2024-01-17 11:15 | A.OFFVIS_ITS ---
Intake Visit Reasons: 6 mth follow up right mastectomy Intake Note: Patient presents for six month follow-up breast exam s/p right mastectomy. Pt c/o; denies any concerns regarding the breast, has a lump on the back of the neck that would like to have evaluated was removed in the past by Dr Amador Bone density: 08/03/2023 Breast MRI: 06/02/2023 Social Services Coordinator Required: No Accompanied by: Self / Same As Patient Allergies Seasonal Allergies Allergy (Verified 01/17/24 11:22) headaches itchy eyes, sneezing,rash Medication List - Last Reconciled 01/18/24 by Samir Escobar MD acetaminophen 650 mg PO Q6H PRN drospirenone-ethinyl estradiol 3-0.03 mg (Fariba) 3 tabs PO DAILY fexofenadine (Marilynn Allergy) 180 mg PO DAILY multivitamin 1 tab PO DAILY oxycodone 5 mg PO Q4H PRN tamoxifen 20 mg PO DAILY HPI HPI 6 mth follow up right mastectomy: Details: 63 year female here for follow-up after mastectomy. She had undergone mastectomy in the right side with sentinel node biopsy for a T1 N0 invasive ductal carcinoma, ER CO positive, HER2 negative . She has been doing well since that time. She is currently on hormonal treatment. She is being followed by Dr. Mullins She also wants her lipoma on the posterior neck removed. She had this excised about [address] Amador but this has recurred. [facility] Medical History (Updated 01/18/24 @ 09:07 by Samir Escobar MD) Lipoma of neck History of breast cancer History of torn meniscus of left knee Calcification of both breasts on mammography Seasonal allergic rhinitis Colon cancer screening Breast calcifications Surgical History Hx of bilateral breast biopsy (05/25/23) Hx of colonoscopy (~09/2022) History of arthroscopy of left shoulder Family History Father No problems noted. Mother CVD (cerebrovascular disease) Stroke Sister Breast cancer Paternal Aunt Breast cancer Paternal Grandfather Colon cancer Brother Lymphoma Social History Household Members: None Housing: House Are you a primary client care coordinator to a significant other at home: No Do you presently have visiting nurse or other home services: No Alcohol intake: current Comment: counts correct Patient Tobacco Use Status: Former Tobacco user Tobacco use type: Cigarette Years Smoked: college e-Cigarette/Vaping Use: Never Used Second Hand Smoke Exposure: No service: No Current occupational status: employed Cognitive needs: No Hearing needs: No Vision needs: No Female Reproductive History Menstrual Age of Menarche: 15 Review of Systems Const Denies chills and Denies fever(s) Card Denies chest pain, Denies dyspnea and Denies dyspnea on exertion Resp Denies cough, Denies dyspnea and Denies dyspnea on exertion GI Denies hematochezia and Denies change in bowel habits Denies hematuria Musc Denies back pain and Denies limited range of motion Neuro Denies focal weakness and Denies convulsions Psych Denies depression and Denies mood swings Physical Exam Const General: no acute distress Orientation/consciousness: patient oriented x3 HEENT Other: Large lipomatous mass on the posterior neck, about 4.5 cm in diameter Neck Neck: Yes no lymphadenopathy Chest Other: Mastectomy site well healed, no palpable chest wall mass, no lymphadenopathy, no palpable mass on the left breast Resp Auscultation: clear to auscultation bilaterally Cardio Rhythm: regular rhythm GI Palpation (GI): Soft to palpation, nontender and no guarding Neuro General: patient oriented x3 Assessment & Plan Assessment & Plan (1) History of breast cancer: Code(s): Z85.3 - Personal history of malignant neoplasm of breast Category: Medical Plan: Status post right breast mastectomy for early stage invasive ductal carcinoma last June,. She is doing very well. Current exam does not reveal any new masses I emphasized to her the need to continue with screening mammograms for the left breast. She should see me in the office again in about 6 months for another physical exam of the breast and the mastectomy site. She is to continue with follow-ups with Dr. Mullins. (2) Lipoma of neck: Code(s): D17.0 - Benign lipomatous neoplasm of skin and subcutaneous tissue of head, face and neck Category: Medical Plan: She has a large lipoma on the posterior neck. This is recurrent. She wants this removed. I explained the technique of excision and this may best be done with anesthesia in view of the size and location. I reviewed the risks including but not limited to bleeding, infections and poor healing. She wants to proceed This will be scheduled under monitored anesthesia care. Coding Level of Care Code Est Pt Level 3 (83111) Diagnoses History of breast cancer Z85.3 Lipoma of neck D17.0
== END 2024-01-17 12:07 | disposition home or self-care (01) ==
PROVIDERS: PCP Internal Medicine; Visit Provider Surgery
DX: Z85.3 Personal history of malignant neoplasm of breast (principal); D17.0 Benign lipomatous neoplasm of skin and subcutaneous tissue of head, face and neck
CPT/HCPCS: 99213

== ENCOUNTER → 2024-01-17 10:57 | Outpatient (BNVA) | payer BC, SELFPAY | PROVIDERS: PCP Internal Medicine; Visit Provider Surgery ==

== ENCOUNTER 2024-03-19 08:48 | Day surgery (SDC) | payer BC, SELFPAY ==
[2024-03-15 12:38] VITALS: BMI 19.3
[2024-03-19 09:04] VITALS: BMI 20.9
--- NOTE | 2024-03-19 09:13 | HO.ANESPROP2 ---
HPI - Anesthesia Eval Consult details Narrative: 53 yo female patient for Excision of Lipoma posterior neck PMFSH Active Problems Active Problems: All Active Problems S/P right mastectomy (Acute) Breast cancer, right (Acute) Keratosis (Acute) Neck mass (Acute) Hypertriglyceridemia (Acute) Shoulder pain, right (Acute) Occipital headache (Acute) Bunion (Acute) Annual physical exam (Acute) Lipoma of neck (Acute) History of breast cancer (Acute) Calcification of both breasts on mammography (Acute) Breast calcifications (Acute) Past Medical History Medical History Lipoma of neck History of breast cancer History of torn meniscus of left knee Calcification of both breasts on mammography Seasonal allergic rhinitis Colon cancer screening Breast calcifications Family History Family History Father No problems noted. Mother CVD (cerebrovascular disease) Stroke Sister Breast cancer Paternal Aunt Breast cancer Paternal Grandfather Colon cancer Brother Lymphoma Family history of problems with anesthesia: No Surgical History Surgical History Hx of right mastectomy Hx of bilateral breast biopsy (05/25/23) Hx of colonoscopy (~09/2022) History of arthroscopy of left shoulder History of Problems with Anesthesia: No Social History Social History Household Members: None Housing: House Are you a primary managed care manager to a significant other at home: No Do you presently have visiting nurse or other home services: No Alcohol intake: current Alcohol intake frequency: holidays/special occasions only Comment: counts correct Patient Tobacco Use Status: Former Tobacco user Tobacco use type: Cigarette Years Smoked: college e-Cigarette/Vaping Use: Never Used Second Hand Smoke Exposure: No Use of substances other than those prescribed or required for medical reasons: No Have you been hit, kicked, punched, or otherwise hurt by someone within the past year? If so, by whom?: No Are you DNR?: No Advance Directives: No Advance Directives Information Provided: Yes Advance Directives on File: No service: No Current occupational status: employed Cognitive needs: No Hearing needs: No Vision needs: No Meds Allergies Allergy/AdvReac Type Severity Reaction Status Date / Time Seasonal Allergies Allergy headaches Verified 01/17/24 11:22 itchy eyes, sneezing,rash Active Medications: Current Medications Cefazolin Sodium/Dextrose (Ancef) 2 gm in 50 mls @ 100 mls/hr IV PREOP ONE Stop: 03/19/24 09:32 Home Medications ?Medication ?Instructions ?Recorded ?Confirmed ?Last Taken ?Type fexofenadine 180 mg tablet 180 mg PO DAILY 05/05/20 01/18/24 07/03/23 History (Amrilynn Allergy) multivitamin 1 tab PO DAILY 05/05/20 01/18/24 07/03/23 History drospirenone 3 mg-ethinyl 3 tab PO DAILY 09/28/22 01/18/24 07/03/23 History estradiol 0.03 mg tablet (Fariba) acetaminophen 325 mg tablet 650 mg PO Q6H PRN Pain 06/20/23 01/18/24 07/03/23 History Exam Height,Weight and Vital Signs: Height 5 ft 1 in Weight 50.167 kg Vital Signs Temp Pulse Resp BP Pulse Ox O2 Del Method 03/19/24 09:16 98.2 F 80 16 129/71 98 Room Air Airway Mallampati Class: II (Small mouth) TM Dist: >3cm Neck ROM: Full Loose/Missing/Broken Teeth: No Heart: RRR Lungs: CTAB Assessment and Plan Assessment Anesthesia Assessment: Anesthesia Plan Discussed and Chart Reviewed Final Anesthetic Review Family History of Problems with Anesthesia: No History of Problems with Anesthesia: No NPO: Yes ASA Class: II Final Preanesthetic Review: No Changes in Pt Med Stat, Meds/Allgs Chart Reviewed, Consent Obtained/Reviewed and Anes Risks/Benef Reviewed Patient Risk: Low Procedure Risk: Low Assessment/Block/Sedation in SS: Assess/Block/Sedation-SS Anesthetic Plan Anesthetic Plan: GA Disposition: Standard PACU
[2024-03-19 09:16] VITALS: BP 129/71; PULSE 80; RESP 16; TEMP 36.8; O2SAT 98
--- NOTE | 2024-03-19 09:22 | P.HPSUR_ITS ---
Pre-Procedural Eval Section A - 24 Hr Update-Section A only Date of Service: 03/19/24 Section B - Complete if H&P > 30 days Chief Complaint: Benign lipomatous neoplasm of skin & breast subcut Details of Present Illness: Lipoma on the posterior neck Relevant Social History: None Present Medications: see Short Stay Collaborative assessment Medical History: Significant History (History of breast cancer, h ypertriglyceridemia) History of Previous Operations: No relevant previous surgery Allergies: Allergies Allergy/AdvReac Type Severity Reaction Status Date / Time Seasonal Allergies Allergy headaches Verified 01/17/24 11:22 itchy eyes, sneezing,rash Review of Systems Sugical H&P ROS: Negative: Constitution, Cardiovascular, Respiratory and Gastrointestinal Exam Surgical H&P Exam: Normal: Heart, Normal: Lungs and Normal: Abdomen and Significant Findings: HEENT (Large lipoma on the posterior neck) Plan Diagnosis/Plan: Unchanged I have reviewed the history and physical and performed a pertinent physical examination on my patient. No changes have occurred unless specified. Time Spent With Patient Time: Total time managing care of this patient today ____ minutes.
--- NOTE | 2024-03-19 10:16 | P.OP_ITS ---
Operative Note Operative Note Date of Service: 03/19/24 Narrative: Preop diagnosis: Recurrent large lipoma posterior neck Postop diagnosis: The same Procedure: Excision of large recurrent lipoma posterior neck under anesthesia Surgeon: Samir Escobar MD conservation assistant: CAIN Fernandez The patient is a 53 year female with note of recurrent lipoma in the posterior neck. This has been increasing in size. She wanted this removed. She understood the technique of excision under anesthesia and was aware of the risks, benefits, and alternatives She was brought to the operating room. She was placed in left lateral decubitus position under general anesthesia via laryngeal mask airway. The posterior neck area was prepped and draped in the usual sterile fashion. A surgical time-out was done. The patient received cefazolin 2 g IV preoperatively I infiltrated the planned line of incision on the skin overlying the lipoma with lidocaine 1%. I made the incision transversely with a blade 15. This carried down with electrocautery through the full-thickness of the skin and thick subcutaneous fat until was able to visualize the lipoma. I sharply dissected the lipoma with Metzenbaum scissors off of the rest of the surrounding subcutaneous layer. This was also attached with the distal layer posteriorly. I used electrocautery to separate this from the muscle. This was delivered. This measured about 3 cm x 2 cm. This was sent as a specimen. I used electrocautery to ensure hemostasis. Once hemostasis was confirmed, I irrigated copiously. The deep subcutaneous layer was reapposed with Polysorb 3- 0 simple interrupted sutures. Skin closure was achieved with Polysorb 4-0 subcuticular running stitch. The area was then infiltrated with Marcaine 0.5% for postop analgesia. Dressings were applied and the procedure was completed The patient tolerated procedure well. There were no immediate complications. Initial and final counts of sponges and instruments were correct. Estimated blood loss was about 5 cc. The patient was extubated without difficulty and transferred to the recovery room with stable vital signs.
[2024-03-19 10:33] VITALS: BP 118/70; PULSE 75; RESP 16; TEMP 36.1; O2SAT 100
[2024-03-19 10:38] VITALS: BP 128/82; PULSE 67; RESP 16; O2SAT 100
[2024-03-19 10:43] VITALS: BP 127/73; PULSE 68; RESP 16; O2SAT 100
[2024-03-19 10:48] VITALS: BP 133/73; PULSE 70; RESP 16; O2SAT 100
[2024-03-19 11:02] VITALS: BP 108/72; PULSE 69; RESP 16; TEMP 36.2; O2SAT 100
== END 2024-03-19 11:39 | disposition home or self-care (01) ==
PROVIDERS: PCP Internal Medicine; Visit Provider Surgery
PROC: (CPT 21552; principal; 2024-03-19 10:00)
DX: D17.0 Benign lipomatous neoplasm of skin and subcutaneous tissue of head, face and neck (principal); J30.2 Other seasonal allergic rhinitis; C50.911 Malignant neoplasm of unspecified site of right female breast; Z17.0 Estrogen receptor positive status [ER+]; Z17.21 Progesterone receptor positive status; Z17.32 Human epidermal growth factor receptor 2 negative status; Z79.810 Long term (current) use of selective estrogen receptor modulators (SERMs); Z79.51 Long term (current) use of inhaled steroids; Z79.899 Other long term (current) drug therapy; Z87.891 Personal history of nicotine dependence
CPT/HCPCS: 21552; 88304; J0131; J0690; J1100; J2003; J2405; J2704; J2795; J3010

== ENCOUNTER → 2024-03-19 08:48 | Outpatient (BNV) | payer BC, SELFPAY | PROVIDERS: PCP Internal Medicine; Visit Provider Surgery | DX: D17.0 Benign lipomatous neoplasm of skin and subcutaneous tissue of head, face and neck (principal) | CPT/HCPCS: 21552 ==

== ENCOUNTER 2024-04-01 09:52 | Outpatient (AMB) | payer BC, SELFPAY ==
--- NOTE | 2024-04-01 09:53 | A.OFFVIS_ITS ---
Intake Visit Reasons: S/P excision lipoma posterior neck Intake Note: This patient presents for post-op assessment status post Excision of large recurrent lipoma posterior neck under anesthesia. Pt c/o; reports no complaints. 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 She tolerated procedure well. She currently denies significant complaints. [facility] Medical History Lipoma of neck History of breast cancer History of torn meniscus of left knee Calcification of both breasts on mammography Seasonal allergic rhinitis Colon cancer screening Breast calcifications Surgical History Status post excision of lipoma (~03/19/24) Hx of right mastectomy Hx of bilateral breast biopsy (05/25/23) Hx of colonoscopy (~09/2022) History of arthroscopy of left shoulder Family History Father No problems noted. Mother CVD (cerebrovascular disease) Stroke Sister Breast cancer Paternal Aunt Breast cancer Paternal Grandfather Colon cancer Brother Lymphoma Social History Household Members: None Housing: House Are you a primary patient care director to a significant other at home: No Do you presently have visiting nurse or other home services: No Alcohol intake: current Alcohol intake frequency: holidays/special occasions only Comment: counts correct Patient Tobacco Use Status: Former Tobacco user Tobacco use type: Cigarette Years Smoked: college e-Cigarette/Vaping Use: Never Used Second Hand Smoke Exposure: No service: No Current occupational status: employed Cognitive needs: No Hearing needs: No Vision needs: No Female Reproductive History Menstrual Age of Menarche: 15 Review of Systems Const Denies chills and Denies fever(s) Resp Denies cough Physical Exam Const General: comfortable and no acute distress HEENT Other: Excision site on the posterior neck is well healed, not infected, sutures in place Assessment & Plan Assessment & Plan (1) Neck mass: Comment: posterior 12/2011 Dr. Ham 2011 Code(s): R22.1 - Localized swelling, mass and lump, neck Category: Medical Plan: Status post excision. The incision is well healed. We removed her sutures. The path report confirms a lipoma. She can therefore follow up on a p.r.n. basis. Coding Level of Care Code Global (98667) Diagnoses Neck mass R22.1
== END 2024-04-01 10:05 | disposition home or self-care (01) ==
PROVIDERS: PCP Internal Medicine; Visit Provider Surgery
DX: R22.1 Localized swelling, mass and lump, neck (principal)
CPT/HCPCS: 99024

== ENCOUNTER 2024-04-13 09:55 | Outpatient (REF) | payer BC, SELFPAY ==
--- NOTE | ~2024-04-13 | MM_ITS ---
EXAMINATION: MM SCREENING DIGITAL BREAST TOMOSYNTHESIS, BILATERAL CLINICAL INFORMATION: Screening. Asymptomatic. History right breast cancer status post mastectomy in 2022. COMPARISON: Mammography: Comparison is made with available prior examinations. TECHNIQUE: Digital breast tomosynthesis is performed in both the craniocaudal and mediolateral oblique views along with computer-aided detection (CAD). Synthesized 2D images are generated from the tomosynthesis. FINDINGS: The breasts are heterogeneously dense, which may obscure small masses (ACR BI-RADS breast composition Category c). Marker clip in the upper outer left breast from previous benign needle core biopsy. There are no significant masses, abnormal calcifications, or other abnormalities. MM/MM tomosynthesis screening LT IMPRESSION: No mammographic evidence of malignancy. ASSESSMENT: BI-RADS BI-RADS 2 - Benign Findings RECOMMENDATION: Routine annual mammography screening. 1 year F/U This examination should not preclude the clinical evaluation of a suspicious palpable abnormality. This patient's information was entered into a reminder system with a target due date for their next mammogram. Electronically signed by: Krista Maldonado DO 04/15/2024 08:59 AM JAIRO
--- OUTSIDE RECORDS SUMMARY | 2024-04-17 11:45 | XMS_ITS | Patient Health Record ---
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 the day before the procedure for 1 day 08/10/2022 Active Marilynn 60 MG as directed Orally Active Fariba 3-0.03 MG TAKE 1 TABLET ORALLY ONCE A DAY, SKIP LAST WEEK OF PILL PACK AND START NEW PACK RIGHT AWAY Oral for 21 Active IMMUNIZATIONS Vaccine Route Administration Date Status Comme nts Influenza Unknown 02/22/2022 Administered SOCIAL HISTORY Sex Assigned At : Social History Observation Description Sex Assigned At Unknown PROBLEMS Problem Type ICD Code Onset Dates Problem Status W/U Status Risk SNOMED Code Notes Problem Colon cancer screening (Z12.11) Active confirmed 882074115 Problem Encounter for other preprocedural examination (Z01.818) Active confirmed [id number] PLAN OF TREATMENT Future Test Test Name Order Date UPPER GI ENDOSCOPY 09/22/2011 COLONOSCOPY 08/10/2022 Insurance Providers Payer Name Payer Address Payer Phone Subscriber Number Group Number Insured Name Patient Relationship to Insured Coverage Start Date Coverage End Date [employer] [address] [place] [address] [id number] 5 ABI SIDDIQUI Self - patient is the insured [facility] [address] [place] [address] [id number] 5 ABI SIDDIQUI Self - patient is the insured MEDICAL (GENERAL) HISTORY Medical History History ICD Code Seasonal allergic rhinitis Surgical History Surgery Date(Month/Year) knee surgery Benign breast biopsy 04/15 bone marrow donor 1995 Upper endoscopy, negative H. pylori 10/26 11
== END 2024-04-13 09:56 | disposition home or self-care (01) ==
LOC: HO.MAMMO 09:55
PROVIDERS: PCP Internal Medicine; Visit Provider Internal Medicine
DX: Z12.31 Encounter for screening mammogram for malignant neoplasm of breast (principal)
CPT/HCPCS: 77063; 77067

== ENCOUNTER → 2024-04-13 10:00 | Outpatient (BNV) | payer BC, SELFPAY | PROVIDERS: PCP Internal Medicine; Visit Provider Internal Medicine | DX: Z12.31 Encounter for screening mammogram for malignant neoplasm of breast (principal) | CPT/HCPCS: 77063; 77067 ==

== ENCOUNTER 2024-04-23 11:19 | Outpatient (AMB) | payer BC, SELFPAY ==
--- OUTSIDE RECORDS SUMMARY | 2024-04-23 11:42 | XMS_ITS | Patient Health Record ---
Author Organization [facility] Address [address] [place] [address] Care Team Providers Care Senior Manufacturing Test Engineer Name Role Phone Tammy Walton MD Primary Care Provider Bobby Gómez Jr Unavailable ALLERGIES Allergen (clinical drug ingredient) Drug/Non Drug [...] Problem Colon cancer screening (Z12.11) Active confirmed [id number] Problem Encounter for other preprocedural examination (Z01.818) Active confirmed [id number] PLAN OF TREATMENT Future Test Test Name Order Date UPPER GI ENDOSCOPY 09/22/2011 COLONOSCOPY 08/10/2022 Insurance Providers Payer Name Payer Address Payer Phone Subscriber Number Group Number Insured Name Patient Relationship to Insured Coverage Start Date Coverage End Date [employer] OF [employer] [address] [place] [phone] [id number] ABI SIDDIQUI Self - patient is the insured [facility] [address] [place] [address] 5 ABI SIDDIQUI Self - patient is the insured MEDICAL (GENERAL) HISTORY Medical History History ICD Code Seasonal allergic rhinitis Surgical History Surgery Date(Month/Year) knee surgery Benign breast biopsy 04/15 bone marrow donor 1995 Upper endoscopy, negative H. pylori 10/26 11
[2024-04-23 11:44] VITALS: BP 108/62; PULSE 85; O2SAT 98; BMI 21.0
--- NOTE | 2024-04-23 11:44 | A.OFFPC_ITS ---
Vital Signs 04/23/24 11:44 Height 5 ft 1 in Weight 111 lb BMI 21.0 BP 108/62 Blood Pressure Location Lt brachial Position Sitting Pulse 85 Pulse Source Pulse Oximeter Pulse Oximetry (%) 98 Oxygen Delivery Method Room Air Intake Visit Reasons: pe Allergies Seasonal Allergies Allergy (Verified 04/23/24 11:44) headaches itchy eyes, sneezing,rash Medication List - Last Reconciled 04/23/24 by Tammy Walton MD acetaminophen 650 mg PO Q6H PRN ascorbate calcium (vitamin C) 500 mg PO DAILY cholecalciferol (vitamin D3) 50 mcg PO DAILY cyanocobalamin (vitamin B-12) 1,000 mcg PO DAILY fexofenadine (Marilynn Allergy) 180 mg PO DAILY ibuprofen 600 mg PO Q6H PRN magnesium 250 mg PO DAILY multivitamin 1 tab PO DAILY tamoxifen 20 mg PO DAILY Tobacco use date assessed: 04/23/24 Dental Screening Dental Screen Date: 04/23/24 Did you have a dental visit in the last 12 months?: Yes Did you have a dental problem in the last 6 months where you did not have access to dental care?: No Was dental information given to patient?: Patient has dentist HPI pe HPI Details The patient is a 53-year-old female presenting with knee pain and follow-up related to her cancer history. She has a history of breast cancer and underwent a mastectomy last year, after which she has been under the care of Dr. Mullins and is currently on Tamoxifen. Subsequently, she experiences menopausal symptoms, notably hot flashes that disrupt sleep, occurring approximately every two hours. Additionally, the patient had a lipoma excised from her back, which was a recurrence from 2011, with pathology confirming a benign fatty tumor. Currently, she reports right knee discomfort, first noticed a couple of months ago, which worsens with kneeling. There has been no associated trauma, swelling, or specific inciting event. Her previous knee surgery suggests chronic arthrosis. The patient's blood pressure remains well-controlled, and there is no known allergy to medications. She uses sifl-ymh-[id number] analgesics cautiously, adhering to recommended use with food and adequate hydration to avoid gastric distress. 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 - Reports occasional alcohol intake, bradley roximately two drinks monthly - Does not smoke or use recreational fabiola gs - Active with household and potentially leisure activities - Supplements include multivitamins, vit woo C, B12, D, and magnesium - General: Denies fatigue, unintended we ight loss - Cardiovascular: Denies chest pain, pal pitations - Respiratory: Denies shortness of breat h - Gastrointestinal: Denies nausea, vomit ing, constipation, diarrhea - Genitourinary: Denies dysuria, changes in urinary frequency - Musculoskeletal: Reports occasional kn ee pain, particularly with kneeling - Neurological: Denies dizziness, syncop e - Dermatological: Denies new rashes, les ions - Mammogram: Normal results - Previous pathology: Lipoma, benign fat ty tumor PFSH Medical History Lipoma of neck History of breast cancer History of torn meniscus of left knee Calcification of both breasts on mammography Seasonal allergic rhinitis Colon cancer screening Breast calcifications Surgical History Status post excision of lipoma (~03/19/24) Hx of right mastectomy Hx of bilateral breast biopsy (05/25/23) Hx of colonoscopy (~09/2022) History of arthroscopy of left shoulder Family History Father No problems noted. Mother CVD (cerebrovascular disease) Stroke Sister Breast cancer Paternal Aunt Breast cancer Paternal Grandfather Colon cancer Brother Lymphoma Social History (Updated 04/23/24 @ 12:31 by Tammy Walton MD) Household Members: None Housing: House Are you a primary rn patient care to a significant other at home: No Do you presently have visiting nurse or other home services: No Alcohol intake: current Alcohol intake frequency: holidays/special occasions only Comment: once a month 2 drinks Patient Tobacco Use Status: Former Tobacco user Tobacco use type: Cigarette Years Smoked: college e-Cigarette/Vaping Use: Never Used Second Hand Smoke Exposure: No service: No Current occupational status: employed Cognitive needs: No Hearing needs: No Vision needs: Yes Female Reproductive History Menstrual Age of Menarche: 15 Questionnaire PHQ-9 Over the last 2 weeks, how often have you been bothered by any of the following problems? 1. Little interest or pleasure in doing things: not at all 2. Feeling down, depressed, or hopeless: not at all 3. Trouble falling or staying asleep, or sleeping too much: several days 4. Feeling tired or having little energy: several days 5. Poor appetite or overeating: not at all 6. Feeling bad about yourself - or that you are a failure or have let yourself or your family down: not at all 7. Trouble concentrating on things, such as reading the newspaper or watching television: not at all 8. Moving or speaking so slowly that other people could have noticed. Or the opposite - being so fidgety or restless that you have been moving around a lot more than usual: not at all 9. Thoughts that you would be better off or of hurting yourself in some way: not at all Total score: 2 Source: Developed by Drs. Ross Gilliam, Kiatlynn Thompson, Rey Finley and colleagues, with an educational jazz from [employer]. Thrive Questionnaire Date Thrive assessed: 04/23/24 I am a: Patient What is your living situation today?: I have a steady place to live Within the past 12 months, did the food you bought not last and you didn't have the money to get more?: Never true Within the past 12 months, did you worry whether your food would run out before you got money to buy more?: Never true Do you have trouble paying for medicines?: No Do you have trouble getting transportation to medical appointments?: No Do you have trouble paying your heating and electricity bill?: No Do you have trouble taking care of your child, family member or friend?: No Do you have trouble with day-to-day activities such as bathing, preparing meals, shopping, managing finances, etc.?: No Are you currently unemployed and looking for a job?: No Are you interested in more education?: No Please select the resources that you would like help with: None Currently or been in a relationship where the following occur: No concerns reported THRIVE Score: 0 AUDIT C Alcohol Use Questionnaire (AUDIT-C) 1. How often do you have a drink containing alcohol?: Monthly or less 2. How many drinks containing alcohol do you have on a typical day when you are drinking?: 1 or 2 3. How often do you have six or more drinks on one occasion?: Never Total Score: 1 CARYN-7 AMB Questionnaire CARYN-7 Date CARYN - 7 assessed: 04/23/24 Feeling nervous, anxious, or on edge: 1 = Several days Not being able to stop or control worryin = Several days Worrying too much about different things: 0 = Not at all Trouble relaxin = Not at all Being so restless that it is hard to sit still: 0 = Not at all Becoming easily annoyed or irritable: 1 = Several days Feeling afraid as if something awful might happen: 0 = Not at all Total CARYN-7 score (0-4 normal; 5-9 mild; 10-14 moderate; 15-21 severe): 3 Source: Developed by Drs. Ross Gilliam, Kaitlynn Thompson, Rey Finley and colleagues, with an educational jazz from [employer]. Review of Systems Const Denies poor appetite and Denies weakness Eyes Denies no additional complaints ENT Reports Normal hearing present, Denies dizziness, Denies nasal congestion, Denies tinnitus and Denies sore throat Card Denies chest pain, Denies syncope, Denies rapid heart rate and Denies dyspnea Resp Denies cough and Denies dyspnea GI Denies change in stool character, Reports constipation, Denies diarrhea, Denies nausea and Denies vomiting Denies urinary frequency, Denies difficulty voiding and Denies dysuria Neuro Reports Normal hearing present, Denies confusion, Denies dizziness, Denies syncope and Denies weakness Psych Denies confusion Physical exam (Primary Care) Vital Signs: Last Vital Signs Pulse 85 04/23/24 11:44 BP 108/62 04/23/24 11:44 Pulse Ox 98 04/23/24 11:44 Oxygen Delivery Method Room Air 04/23/24 11:44 BMI result Body Mass Index 21.0 Tobacco/Smoking Status: Tobacco use Status Tobacco use date assessed 04/23/24 04/23/24 11:46 Patient Tobacco Use Status Former Tobacco user 04/23/24 12:31 Tobacco use type Cigarette 04/23/24 12:31 e-Cigarette/Vaping Use Never Used 04/23/24 12:31 PHQ-9: PHQ-9 Score PHQ-9: Total score 2 04/23/24 12:48 Thrive Assessment: Date of Thrive Assessment Date Thrive assessed 04/23/24 04/23/24 11:46 Currently or been in a relationship where the following occur: No concerns reported Const General: No confusion Orientation/consciousness: No confusion HENMT Head: Yes normocephalic Ears: external ears normal and TM's normal bilaterally Face and sinus: Yes normal facial exam Mouth: moist mucous membranes Throat: Yes tonsils normal Eyes Conjunctivae: conjunctivae normal Pupils: Equal, round and reactive pupils present and Pupil accommodation reflex normal Direct Ophthalmoscopy: normal light reflex Neck Neck: No lymphadenopathy Thyroid: Thyroid normal Chest Chest palpation & inspection: normal inspection of the chest Resp Effort & Inspection: normal respiratory effort and no audible wheezes Auscultation: clear to auscultation bilaterally, no crackles, no wheezes and lung sounds not diminished Cardio Rate: regular rate Rhythm: regular rhythm Peripheral pulses: radial pulses present and dorsalis pedis present GI Palpation (GI): no masses Auscultation: normal bowel sounds and normoactive bowel sounds Rectal Exam - Female: deferred Skin General skin exam: no rashes or lesions noted Rashes: no rashes Neuro General: No confusion Cranial nerves: Yes Equal, round and reactive pupils present and Yes Normal hearing present Cognition (Neuro): normal cognition Gait exam (Neuro): Normal gait present Motor exam (neuro): 5/5 motor strength present throughout Deep tendon reflexes (DTR's): Right brachioradialis reflex intensity grade: 2+, Left brachioradialis reflex intensity grade: 2+, Right patellar reflex intensity grade: 2+ and Left patellar reflex intensity grade: 2+ Extrem General: No edema Immunizations pneumoc 20-chichi conj-dip cr(PF) 0.5 mL IM syringe Performing Provider: Tammy Walton MD [place] Administered by: GARRETT Cochran on 04/23/24 12:48 Dose Route Admin Location Dispensed Lot Number Expiration Date [facility] [employer] 0.5 mL IM Left Deltoid 0.5 mL [id number] 08/06/25 [employer] [employer] VIS Given Date VIS Provided VIS Publication Date 04/23/24 Single Vaccine 21 Eligibility Eligibility Date Funding Source Not [facility] Eligible 04/23/24 Private Coding Level of Care Code Est Pt Prev Care 40-64y(96112) Diagnoses Annual physical exam Z00.00 Breast cancer, right C50.911 Neck mass R22.1 Knee pain, right M25.561 Assessment & Plan Assessment & Plan (1) Annual physical exam: Code(s): Z00.00 - Encounter for general adult medical examination without abnormal findings Category: Medical (2) Breast cancer, right: Comment: May 2023 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 Code(s): C50.911 - Malignant neoplasm of unspecified site of right female breast Category: Medical (3) Neck mass: Comment: posterior 12/2011 Dr. Ham 2011 Code(s): R22.1 - Localized swelling, mass and lump, neck Category: Medical (4) Knee pain, right: Code(s): M25.561 - Pain in right knee Category: Medical Plan - Consider X-rays of the right knee to assess for progression of arthrosis - Discuss potential use of topical NSAID, Voltaren gel, as an alternative pain management option - Continue monitoring and support for menopausal symptoms induced by Tamoxifen therapy - Reinforce the use of multivitamins and supplement intake as appropriate - Follow up with recommended screenings, including upcoming eye examination and scheduled colonoscopy - Encourage routine vaccination updates, especially shingles vaccine series I reviewed the patient's medical history, including her breast cancer status post-mastectomy and current menopause management with Tamoxifen, which continues to cause significant hot flashes. We discussed ongoing support and assurance of normal mammogram results while addressing her knee pain concern, previously surgically repaired and now presenting with intermittent discomfort. I recommended radiographic evaluation to further investigate possible arthritic changes. We also discussed safe NSAID use and introduced a topical option for pain management to minimize systemic effects. Vaccination updates were provided along with advice on timeline and expectations for a shingles vaccine. I instructed to prioritize hydration and careful NSAID use. Follow-up arrangements and return precautions were thoroughly reviewed. - Use Voltaren gel for knee pain as directed - Drink adequate water, especially when using NSAIDs - Avoid NSAIDs without food or when dehydrated - Schedule and attend regular health screenings as previously discussed - Begin shingles vaccine series as recommended - Return if knee pain worsens or if other symptoms develop - Discuss any new symptoms or concerns with healthcare provider promptly Orders: Orders XR knee RT 2V Today M25.561 - Pain in right knee Complete Blood Count Auto Diff Today C50.911 - Malignant neoplasm of unspecified site of right female breast Vitamin B12 and Folate Today C50.911 - Malignant neoplasm of unspecified site of right female breast Vitamin D 25-OH Total Today C50.911 - Malignant neoplasm of unspecified site of right female breast Pneumococcal 20 Immunization Today Z23 - Encounter for immunization Comprehensive Met. Panel Today C50.911 - Malignant neoplasm of unspecified site of right female breast Free T4 (Free Thyroxine) Today C50.911 - Malignant neoplasm of unspecified site of right female breast Lipid Panel Today C50.911 - Malignant neoplasm of unspecified site of right female breast, E78.00 - Pure hypercholesterolemia, unspecified Thyroid Stimulating Hormone Today C50.911 - Malignant neoplasm of unspecified site of right female breast UA CC w/rflx Micro + Cult Today C50.911 - Malignant neoplasm of unspecified site of right female breast, R30.0 - Dysuria Magnesium Today C50.911 - Malignant neoplasm of unspecified site of right female breast
== END 2024-04-23 12:48 | disposition home or self-care (01) ==
PROVIDERS: PCP Internal Medicine; Visit Provider Internal Medicine
DX: Z00.00 Encounter for general adult medical examination without abnormal findings (principal); C50.911 Malignant neoplasm of unspecified site of right female breast; R22.1 Localized swelling, mass and lump, neck; M25.561 Pain in right knee; Z23 Encounter for immunization

== ENCOUNTER → 2024-04-23 11:19 | Outpatient (BNVA) | payer BC, SELFPAY | PROVIDERS: PCP Internal Medicine; Visit Provider Internal Medicine | DX: Z00.00 Encounter for general adult medical examination without abnormal findings (principal); Z23 Encounter for immunization; C50.911 Malignant neoplasm of unspecified site of right female breast; R22.1 Localized swelling, mass and lump, neck; M25.562 Pain in left knee; Z79.810 Long term (current) use of selective estrogen receptor modulators (SERMs) | CPT/HCPCS: 90471; 90677; 96127 ==

== ENCOUNTER 2024-04-29 10:53 | Outpatient (REF) | payer BC, SELFPAY ==
--- OUTSIDE RECORDS SUMMARY | 2024-04-29 10:58 | XMS_ITS | Patient Health Record ---
Author Organization [facility] Address [address] [place] [address] Care Team Providers Care Medical Clinic Manager Name Role Phone Tammy Walton MD Primary Care Provider Bobby Gómez Jr Unavailable [phone] ALLERGIES Allergen (clinical drug ingredient) Drug/Non Drug [...] Problem Colon cancer screening (Z12.11) Active confirmed [id number] Problem Encounter for other preprocedural examination (Z01.818) Active confirmed [id number] PLAN OF TREATMENT Future Test Test Name Order Date UPPER GI ENDOSCOPY 09/22/2011 COLONOSCOPY 08/10/2022 Insurance Providers Payer Name Payer Address Payer Phone Subscriber Number Group Number Insured Name Patient Relationship to Insured Coverage Start Date Coverage End Date [employer] [place] [address] [place] [phone] [id number] 5 ABI SIDDIQUI Self - patient is the insured [facility] [address] [place] [address] [id number] 5 ABI SIDDIQUI Self - patient is the insured MEDICAL (GENERAL) HISTORY Medical History History ICD Code Seasonal allergic rhinitis Surgical History Surgery Date(Month/Year) knee surgery Benign breast biopsy 04/15 bone marrow donor 1995 Upper endoscopy, negative H. pylori 10/26 11
[2024-04-29 11:16] LABS: MANUAL DIFF FLAG NO
[2024-04-29 12:21] LABS: Basophils Absolute Auto 0.1 X10*3/uL (0.0-0.2); Basophils Percent Auto 1.1 % (0-2); Eosinophils Absolute Auto 0.1 X10*3/uL (0.0-0.4); Eosinophils Percent Auto 1.3 % (0-4); Hematocrit 41.2 % (37.0-47.0); Hemoglobin 13.7 g/dl (12.0-16.0); Imm Gran Abs Auto 0.02 X10*3/uL (0.00-0.03); Imm Gran Pct Auto 0.3 % (0.0-0.4); Lymphocytes Absolute Auto 2.1 X10*3/uL (1.2-4.9); Lymphocytes Percent Auto 29.5 % (20-40); Mean Corpuscular HGB Conc 33.3 g/dl (31.0-35.0); Mean Corpuscular Hemoglobin 30.1 pg (27.0-33.0); Mean Corpuscular Volume 90.5 fL (80.0-98.0); Mean Platelet Volume 9.9 fL (9.4-12.3); Monocytes Absolute Auto 0.5 X10*3/uL (0.1-1.2); Monocytes Percent Auto 7.1 % (2-11); Neutrophils Absolute Auto 4.3 x10*3/uL (2.0-8.3); Neutrophils Percent Auto 60.7 % (45-73); Platelet Count 223 X10*3/uL (160-400); Red Blood Count 4.55 X10*6/uL (4.20-5.50); Red Cell Distribution Width 11.4 % (11.0-16.0); White Blood Count 7.1 X10*3/uL (4.8-10.8)
[2024-04-29 12:32] LABS: Appearance Urine Clear; Color Urine Yellow; Glucose Urine UA Negative (Negative); Leukocyte Esterase Urine Small (1+) (Negative); Nitrite Urine Negative (Negative); PH 5.5 (5.0-9.0); UMIC TRIGGER UACC YES; Urine Blood Negative (Negative); Urine Ketones Negative (Negative); Urine Protein Negative (Neg-Trace)
[2024-04-29 12:39] LABS: Bacteria Urine 1+ (None Seen); Hyaline Casts Urine 0-2 /LPF (0-2); RBC Urine 0-2 /HPF (0-2); UACC Culture Trigger YES; WBC Urine 21-50 /HPF (0-5)
[2024-04-29 12:52] LABS: Alanine Aminotransferase 13 U/L (0-31); Alkaline Phosphatase 59 U/L (39-117); Anion Gap 10 (12-20); Aspartate Amino Transferase 22 U/L (5-31); Bilirubin Total 0.2 mg/dL (0.0-1.0); Blood Urea Nitrogen 18 mg/dL (9-16); Calcium 8.7 mg/dL (8.4-10.2); Carbon Dioxide 27 mmol/L (22-29); Chloride 111 mmol/L (96-108); Cholesterol 223 mg/dL (<200); Estimated Glomerular Filt Rate > 60; Glucose Random 94 mg/dL (60-115); HDL Cholesterol 87 mg/dL (>40); LDL Cholesterol Calculated 123 mg/dL (<100); Magnesium 2.3 mg/dL (1.6-2.6); Potassium 4.7 mmol/L (3.3-5.1); Sodium 143 mmol/L (135-145); Total Protein 7.4 g/dL (6.5-8.0); Triglycerides 67 mg/dL (<150)
[2024-04-29 13:23] LABS: Folate 12.8 ng/mL (> or = 4.0); Vitamin B12 1533 pg/mL (200-900)
[2024-04-29 13:48] LABS: Free T4 (Free Thyroxine) 1.05 ng/dL (0.71-1.85); Thyroid Stimulating Hormone 0.68 uIU/mL (0.32-4.0); Vitamin D 25-OH Total 38.8 ng/mL (>30)
== END 2024-04-29 10:54 | disposition home or self-care (01) ==
LOC: HO.LAB 10:53
PROVIDERS: PCP Internal Medicine; Visit Provider Internal Medicine
DX: M25.561 Pain in right knee (principal); E78.00 Pure hypercholesterolemia, unspecified; C50.911 Malignant neoplasm of unspecified site of right female breast; R30.0 Dysuria
CPT/HCPCS: 36415; 73560; 80053; 80061; 81001; 82306; 82607; 82746; 83735; 84439; 84443; 85025; 87086

== ENCOUNTER 2025-04-19 10:05 | Outpatient (REF) | payer BC, SELFPAY ==
--- NOTE | ~2025-04-19 | MM_ITS ---
EXAMINATION: MM SCREENING DIGITAL BREAST TOMOSYNTHESIS, LEFT CLINICAL INFORMATION: Screening. Asymptomatic. COMPARISON: Mammography: This study is compared with prior exams dating back to TECHNIQUE: Digital breast tomosynthesis is performed in both the craniocaudal and mediolateral oblique views along with computer-aided detection (CAD). Synthesized 2D images are generated from the tomosynthesis. FINDINGS: The breasts are heterogeneously dense, which may obscure small masses. Marker clip. There are no significant masses, abnormal calcifications, or other abnormalities. MM/MM tomosynthesis screening LT IMPRESSION: No mammographic evidence of malignancy. ASSESSMENT: BI-RADS Category 2: Benign RECOMMENDATION: Routine annual mammography screening. 1 year F/U This examination should not preclude the clinical evaluation of a suspicious palpable abnormality. This patient's information was entered into a reminder system with a target due date for their next mammogram. Electronically signed by: Krista Maldonado DO 04/23/2025 10:23 AM JAIRO
--- OUTSIDE RECORDS SUMMARY | 2025-04-19 10:08 | XMS_ITS | Clinical Summary ---
Author Organization [facility] Address [address] [place] [address] Phone Care Team Providers Care Frame Operator Name Role Phone Unavailable Primary Care Provider Unavailabl e Social History Tobacco Use Types Packs/Day Years Used Date Smoking Tobacco: Never Assessed Education Answer Date Recorded Are you interested in more education? Not on akbar e 07/05/2023 Are you concerned about learning? Not on file 07/05/2023 No 07/05/2023 No 07/05/2023 Digital Access Answer Date Recorded No 07/05/2023 No 07/05/2023 Reliable internet access at home? Not on file 07/05/2023 Device with a working camera? Not on file Comments Unknown Sex and Gender Information Value Date Recorded Sex Assigned at Not on file Legal Sex Female 3:36 PM EST Gender Identity Not on file Sexual Orientation Not on file Plan of Treatment Not on file Medical Devices Not on file Insurance [facility] PPO BLUE CROSS OUT OF STATE PPO BLUE [employer]OSS OUT OF STATE PPO BLUE [employer]OSS OUT OF STATE PPO BLUE [employer]OSS OUT OF STATE PPO BLUE CROSS OUT OF STATE PPO Additional Source Comments The information contained in this document represents components of the legal health record. It is not the complete legal health record.[facility]
--- OUTSIDE RECORDS SUMMARY | 2025-04-19 10:08 | XMS_ITS | Clinical Summary ---
Author Organization [facility] Address [address] [place] [address] Care Team Providers Care Immigration Patrol Inspector Name Role Phone Pcp, No Primary Care Provider Unavailabl e Allergies No known active allergies Medications No known medications Active Problems No known active problems Social History Tobacco Use Types Packs/Day Years Used Date Smoking Tobacco: Former Smokeless Tobacco: Never Comments Unknown Sex and Gender Information Value Date Recorded Sex Assigned at Not on file Legal Sex Female 2:34 PM EDT Gender Identity Not on file Sexual Orientation Not on file Last Filed Vital Signs Vital Sign Reading Time Taken Comments Blood Pressure 118/79 07/30/2020 5:00 PM EDT Pulse 88 07/30/2020 5:00 PM EDT Temperature 36.3 C (97.4 F) 07/30/2020 5:00 PM EDT Respiratory Rate - - Oxygen Saturation 98% 07/30/2020 5:00 PM EDT Inhaled Oxygen Concentration - - Weight 43.1 kg (95 lb) 07/30/2020 5:00 PM EDT Height 154.9 cm (5' 1 ) 07/30/2020 5:00 PM EDT Body Mass Index 17.95 07/30/2020 5:00 PM EDT Plan of Treatment Health Maintenance Due Date Last Done Comments Hepatitis C Virus Screening 1971 HIV Screening 08/23/1984 DTaP/Tdap/Td Vaccines (1 - Tdap) 08/23/1990 Hepatitis B Vaccines (1 of 3 - 19+ 3-dose series) 08/23/1990 Pap Smear (Ages 21-65) 08/23/1992 Mammogram 2011 Colonoscopy 08/23/2016 Pneumococcal Vaccines 50+ (1 of 1 - PCV) 08/23/2021 Zoster (Shingles) Vaccine (1 of 2) 08/23/2021 Influenza Vaccine 12/06/2024 COVID-19 Vaccine ( season) 2025 04/28/2021, 08/03/2020, 07/06/2020 RSV Vaccine 50 years and old er and Patients (1 - 1-dose 75+ series) 08/23/2046 Insurance [employer] Care Teams Immigration Patrol Inspector Relationship Specialty Start Date End Date Pcp, No PCP - General General Medicine 07/06/20
--- OUTSIDE RECORDS SUMMARY | 2025-04-19 10:08 | XMS_ITS | Patient Health Record ---
Author Organization [facility] Address [address] [place] [address] Care Team Providers Care Auto Radiator Specialist Name Role Phone Tammy Walton MD Primary Care Provider Bobby Gómez Jr Unavailable Allergies Allergen (clinical drug ingredient) Drug/Non Drug Allergy documented on EMR Reaction Allergy Type Onset Date Status seasonal (uncoded) Unknown Allergy A ctive Reason For Referral No Information Medications Medication SIG (Take, Route, Frequency, Duration) Notes Start Date End Date Status MiraLax (colon prep) 17 GM/SCOOP Powder mixed with Gatorade or Crystal Light Orally begin at 5:00 p.m. 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 alcohol Nonsmoker; no sig. alcohol Problems Problem Type SNOMED Code ICD Code Onset Dates Problem Status W/U Status Risk Notes Problem Colon cancer screening (298586016) Colon cancer screening (Z12.11) Active confirmed Problem Pre-procedure evaluation check (189772363) Encounter for other preprocedural examination (Z01.818) Active confirmed Plan Of Treatment Future Test Test Name Order Date UPPER GI ENDOSCOPY 09/22/2011 COLONOSCOPY 08/10/2022 Insurance Providers Payer Name Payer Address Payer Phone Subscriber Number Group Number Insured Name Patient Relationship to Insured Coverage Start Date Coverage End Date [employer] OF [employer] [address] [place] [phone] [id number] ABI SIDDIQUI Self - patient is the insured [facility] [address] [place] [address] [id number] 5 ABI SIDDIQUI Self - patient is the insured Medical (General) History Medical History History ICD Code Seasonal allergic rhinitis Surgical History Surgery Date(Month/Year) knee surgery Benign breast biopsy 04/15 bone marrow donor 1995 Upper endoscopy, negative H. pylori 10/26 11
--- OUTSIDE RECORDS SUMMARY | 2025-04-19 10:08 | XMS_ITS ---
Author Name [facility] Organization Unknown Encounters Encounter Type Encounter Reason Primary Diagnosis Location Date Ambulatory [facility] 05/30/2021 Care Team Organization Name Specialty Phone Email Start Date End Da te [facility] PCP,No Primary Care 05/30/2021 12/25/2023 [facility] NO PCP Primary Care 05/30/2021 05/31/2021
--- OUTSIDE RECORDS SUMMARY | 2025-04-19 10:09 | XMS_ITS | Patient Health Record ---
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 Primary Care Provider Destiney Barbosa Unavailable [phone] Allergies No Known Allergies Results Component Value Reference Range Notes Urinalysis Reviewed date:08/28/2024 01:16:37 PM Interpretation: Performing Lab: Notes/Report: PH 5.0 PROTEIN Neg GLUCOSE Neg BLOOD Neg Reason For Referral No Information Medications Medication SIG (Take, Route, Frequency, Duration) Notes Start Date End Date Status Marilynn Active Vitamin C 500 MG as directed Orally Active Sudafed 30 MG 2 tablets as needed Orally every 6 hrs Active Tamoxifen Citrate 20 MG Oral; Duration: 30 Days Active Vitamin D3 25 MCG (1000 UT) 1 tablet Orally Once a day A ctive Tylenol 325 MG 1 tablet as needed Orally Active Advil 200 MG 1 tablet with food o r milk as needed Orally Active Ambien 5 MG 1 tablet at bedtime Orally Once a NIGHT PRN; Duration: 90 days 08/28/2024 Active Social History Tobacco Use: Social History Observation Description Date Details (start date - stop date) Never Smoker NA - NA AUDIT-C (Standard) Question Answer Notes Did you have a drink contain ing alcohol in the past year? Yes How often did you have a dri nk containing alcohol in the past year? Monthly or less (1 point) How many drinks did you have on a typical day when you were drinking in the past year? 1 or 2 drinks (0 point) How often did you have six o r more drinks on one occasion in the past year? Never (0 point) Points 1 Interpretation Negative Tobacco Control (Standard) Question Answer Notes Tobacco use: Nonsmoker Section Notes: Nutrition: Average Text messaging while driving: no Marital status: single Occupation: employed full-time Nutrition: average diet Exercise: regular aerobic activity Sexual activity: not sexually active Contraception: oral contraceptives .CE: Smoking: never a smoker Tobacco exposure: No smokers in home. .CE: Alcohol: occasional alcohol Illicit drugs: no Seatbelt: yes Nutrition: Average Text messaging while driving: no Marital status: single Occupation: employed full-time Nutrition: average diet Exercise: regular aerobic activity Sexual activity: not sexually active Contraception: oral contraceptives .CE: Smoking: never a smoker Tobacco exposure: No smokers in home. 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 mammary dysplasias of unspecified breast (N60.89) Active confirmed Problem Premenstrual tension syndrome (81775409) Premenstrual tension syndrome (N94.3) Active confirmed Problem Personal history of primary malignant neoplasm of breast (008568793) Personal history of malignant neoplasm of breast (Z85.3) Active confirmed Problem Premenstrual tension syndrome (99210015) Premenstrual tension syndromes (625.4) Active confirmed Diag Vital Signs Temperature 97.7 degrees Fahrenheit 08/28/2024 Blood pressure diastolic 70 mm Hg 08/28/2024 Height 61 in 08/28/2024 Blood pressure systolic 102 mm Hg 08/28/2024 Weight 110 lbs 08/28/2024 BMI 20.78 kg/m2 08/28/2024 Encounters Encounter Location Date Provider Diagnosis Total [address] [place] [address] 08/28/2024 Destiney Smith Encounter for gynecological examination (general) (routine) without abnormal findings Z01.419 ; Encounter for screening mammogram for malignant neoplasm of breast Z12.31 ; Personal history of malignant neoplasm of breast Z85.3 ; Insomnia, unspecified G47.00 and Dense breasts, unspecified R92.30 Assessments Encounter Date Diagnosis (ICD Code) Assessment Notes Treatment Notes Treatment Clinical Notes Section Notes 08/28/2024 Encounter for gynecological examination (general) (routine) without abnormal findings (ICD-10 - Z01.419) NO PAP TEST, DUE IN 2027. 08/28/2024 Encounter for screening mammogram for malignant neoplasm of breast (ICD-10 - Z12.31) REGULAR LEFT MAMMOGRAM AND SBE'S WERE RECOMMENDED. 08/28/2024 Personal history of malignant neoplasm of breast (ICD-10 - Z85.3) CONTINUE FOLLOW UP AT [facility]. 08/28/2024 Insomnia, unspecified (ICD-10 - G47.00) DISCUSSED WAYS OF INDUCING SLEEP AND DECREASING INSOMNIA. RX AND INSTRUCTIONS FOR AMBIEN WAS GIVEN. TAKE ONLY IF SHE SHE REALLY NEEDS IT. WARNED HER THAT THIS CAN BE HABIT FORMING. 08/28/2024 Dense breasts, unspecified (ICD-10 - R92.30) DISCUSSED DENSE BREASTS ON MAMMOGRAM AND ITS IMPLICATIONS. 3D MAMMOGRAMS WERE RECOMMENDED. Plan Of Treatment Pending Test Test Name Order Date Urinalysis 12/14/2018 Urinalysis 12/11/2017 THIN PREP,HPV,VINAYAK IF HPV+ (>29YR)(SCRN) 12/05/2016 MM Digital Mammo Screening 09/21/2015 MM Digital Mammo Screening 12/05/2016 MM Digital Mammo Screening 12/14/2018 MM Digital Mammo Screening 05/06/2020 MM Digital Mammo Screening 05/05/2021 MM Digital Mammo Screening 08/10/2022 MM Digital Mammo Screening 08/16/2023 MM Digital Mammo Screening 08/28/2024 Next Appt Details Provider Name:Destiney Brinda carl, 09/03/2025 01:00:00 PM, [address], [address], [place], [address], Insurance Providers Payer Name Payer Address Payer Phone Subscriber Number Group Number Insured Name Patient Relationship to Insured Coverage Start Date Coverage End Date [employer] [place] [address] [place] [address] [id number] Self - patient is the insured Medical (General) History Medical History History ICD Code Premenstrual tension syndrome N94.3 Inconclusive mammogram R92.2 Family history of malignant neoplasm of breast Z80.3 Menstrual migraine, not intractable, wit hout status migrainosus G43.829 Other benign mammary dysplasias of unspe cified breast N60.89 Malignant neoplasm of unspecified site o f right female breast C50.911 Dense breasts, unspecified R92.30 Mammographic heterogeneous density, bila teral breasts R92.333 Surgical History Surgery Date(Month/Year) [place] Teeth Extraction Colonoscopy Right Mastectomy 07/04/23 Lump Removed From Neck - Benign Hospitalization History Reason Date(Month/Year) See Surgical Hx
== END 2025-04-19 10:06 | disposition home or self-care (01) ==
LOC: HO.MAMMO 10:05
PROVIDERS: PCP Internal Medicine; Visit Provider Internal Medicine
DX: Z12.31 Encounter for screening mammogram for malignant neoplasm of breast (principal)
CPT/HCPCS: 77063; 77067

== ENCOUNTER → 2025-04-19 10:30 | Outpatient (BNV) | payer BC, SELFPAY | PROVIDERS: PCP Internal Medicine; Visit Provider Internal Medicine | DX: Z12.31 Encounter for screening mammogram for malignant neoplasm of breast (principal) | CPT/HCPCS: 77063; 77067 ==